=== PATIENT | female | born 1930 | race Caucasian/White ===

== ENCOUNTER 2017-10-02 08:49 | Inpatient (IN) | payer MEDICARE ==
[2017-10-02 09:42] LABS: ABS Basophils 0.1 10^3/ul (0-0.2); ABS Eosinophils 0.2 10^3/ul (0-0.6); ABS Lymphocytes 1.2 10^3/ul (1.0-4.8); ABS Monocytes 0.8 10^3/ul (0-0.8); ABS Neutrophils 10.4 10^3/ul (1.5-7.7); ABS Nucleated RBC 0 10^3/ul; Eosinophil % 1.3 % (0-6); Hematocrit 34 % (35-47); Hemoglobin 11.2 g/dl (12.0-16.0); Lymphocyte % 9.1 % (25-47); Mean Corpuscular HGB Conc 33 g/dl (31-36); Mean Corpuscular Hemoglobin 32 pg (27-31); Mean Corpuscular Volume 96 fL (80-97); Mean Platelet Volume 8.6 um3 (7.4-10.4); Nucleated Red Blood Cells % 0; Platelet Count 290 10^3/ul (150-450); Red Blood Count 3.51 10^6/ul (4.0-5.4); Red Cell Distribution Width 14 % (10.5-15); White Blood Count 12.6 10^3/ul (3.5-10.8)
[2017-10-02 09:56] LABS: INR 0.88 (0.77-1.02)
[2017-10-02 09:59] LABS: EGFR Non-African American 63.4 (>60)
--- NOTE | 2017-10-02 10:08 | RAD ---
HISTORY: Sepsis COMPARISONS: None VIEWS: 1: frontal portable view of the chest at 9:36 AM FINDINGS: LINES AND TUBES: None. CARDIOMEDIASTINAL SILHOUETTE: The cardiomediastinal silhouette is normal for portable technique. PLEURA: The costophrenic angles are sharp. No pleural abnormalities are noted. LUNG PARENCHYMA: There is hyperinflation. ABDOMEN: The upper abdomen is clear. There is no subphrenic gas. BONES AND SOFT TISSUES: There is a scoliotic curvature of the spine. Degenerative changes are noted. IMPRESSION: HYPERINFLATION. NO ACTIVE CARDIOPULMONARY DISEASE.
[2017-10-02 11:22] LABS: Urine Appearance Cloudy; Urine Blood 1+ (Negative); Urine Color Yellow; Urine Ketones Negative (Negative); Urine Protein Negative (Negative); Urine Urobilinogen Positive (Negative)
[2017-10-02] MEDS ORDERED: cefTRIAXone(*) 1 GM in NS 0.9% 50 ML* 50 ML IVPB ONE (11:42)
[2017-10-02] MEDS: NS 0.9% 1000 ML* 2,000 ML IV ONE ×2 (12:42→14:13)
[2017-10-02] MEDS ORDERED: hydrOXYzine HCL TAB* 10 MG PO PRN (13:01)
[2017-10-02] MEDS ORDERED: PROCHLORPERAZINE INJ 5 MG/ML 2 ML VIAL IV PRN (13:02)
[2017-10-02] MEDS ORDERED: Dextrose 50% Syringe 50 ML* 25 GM/50 ML SYRINGE IV PUSH PRN (13:14)
[2017-10-02] MEDS: Heparin VIAL(*) 5000 UNITS/ML VIAL (FIVE THOUSAND) SUBCUT SCH ×2 (15:43→21:23)
[2017-10-02] MEDS: Insulin LISPRO* 1 UNITS UNIT SUBCUT SCH ×2 (17:08→21:23)
--- NOTE | 2017-10-02 18:08 | RAD ---
INDICATION: Urinary tract infection COMPARISON: None TECHNIQUE: Real-time ultrasound examination of the bilateral kidneys and urinary bladder including grayscale and Doppler color flow analysis. FINDINGS: There is symmetrical bilateral cortical thinning. The kidneys are otherwise normal in size and echogenicity. There are no hypervascular renal masses. There are no renal calculi or hydronephrosis identified. IMPRESSION: Mild bilateral cortical thinning without signs of hydronephrosis or other acute renal abnormality.
[2017-10-02] MEDS: Metoprolol Tartrate TAB* 25 MG PO SCH (21:22)
[2017-10-02] MEDS: Gabapentin CAP(*) 100 MG PO SCH (21:22)
--- NOTE | 2017-10-02 21:47 | HP ---
CC: Dr. Eli Gregory, [facility] * HISTORY AND PHYSICAL: DATE OF ADMISSION: 10/02/17 TIME OF EVALUATION: 12:45 p.m. CHIEF COMPLAINT: "I am weak." HISTORY OF PRESENT ILLNESS: Ms. Ibarra is an 87-year-old lady with a past medical history of jaundice, constipation, hypothyroidism, type 2 diabetes, hypertension, osteoarthritis, mild dementia, who was sent from [place] to the emergency room due to weakness. The patient is a very poor historian and now she is in the hospital, but does not know exactly why. From her records from [place], I can glean that the patient was treated for pneumonia at [facility] and from there was discharged to [place] for rehab. The patient was diagnosed with E. coli UTI and received penicillin and developed a rash. She was then changed to Keflex, but her symptoms persisted. So, she was sent to the emergency room. At the time of my interview, the patient is able to tell me that she is very tired, but denies urinary complaints, abdominal pain. No nausea, no vomiting. She repeats she is very weak. PAST MEDICAL HISTORY: As per [facility] records, the patient has a history of : 1. Jaundice. 2. E. coli infection. 3. Constipation. 4. Hypothyroidism. 5. Type 2 diabetes. 6. Hypertension. 7. Osteoarthritis. 8. Osteoporosis. 9. Dementia. ALLERGIES: With PENICILLIN, the patient had a rash and LYRICA and NEURONTIN, she had unknown reactions. FAMILY HISTORY: I am unable to obtain from the patient at this time. SOCIAL HISTORY: I am unable to obtain from the patient. She is a resident of [facility]. Surrogate decision maker is her daughter, Vidhi Pak. Phone number is [phone]. PHYSICAL EXAMINATION GENERAL: The patient is a pleasantly confused elderly lady lying in the ED stretcher, in no acute distress. VITAL SIGNS: Temperature 98.8, heart rate is 74, respiratory rate is 15, oxygen saturation is 98% on room air, blood pressure is 131/47. HEENT: Pupils are equal. Moist mucous membranes. CVS: Normal S1, S2. Regular rate and rhythm. CHEST: Breath sounds bilaterally with no added sounds. ABDOMEN: Soft, nontender, nondistended. Bowel sounds are present. EXTREMITIES: No edema. NEUROLOGIC: She is alert and oriented to self and place. Able to move all 4 extremities. LABORATORY AND IMAGING DATA: The patient had a CBC that showed a WBC of 12.6, hemoglobin of 11.2, hematocrit of 34, platelets of 290 with 82% neutrophils. INR was 0.88. Chemistry showed a sodium of 136, potassium 3.6, chloride of 101 , bicarb of 27, BUN of 21, creatinine of 0.85, glucose of 148, lactic acid of 1.9, calcium 8.8. LFTs are normal. Troponin is 0.01. Urinalysis is abnormal with 1+ blood, nitrite positive, urobilinogen positive, 3 + LE, 3+ wbc's, 2+ rbc's and 1+ bacteria. Chest x-ray showed hyperinflation, but no active cardiopulmonary disease. EKG shows normal sinus rhythm at 70 beats per minute. There are no ST-T changes. No prior EKGs to compare. ASSESSMENT AND PLAN: Ms. Ibarra is an 87-year-old lady with a past medical history of jaundice, E. coli infection, constipation, hypothyroidism, type 2 diabetes, hypertension, who presented to the emergency room with weakness, found to have an urinary tract infection. 1. Urinary tract infection. The patient's urinalysis is abnormal and a prior urine culture grew pansensitive E. coli. The patient will be admitted to the medical floor and she will be treated with ceftriaxone. I am going to check a renal/bladder ultrasound to check a urinary tract if there are any other contributing factors to her infection. She does not have signs of sepsis at this time. The patient was apparently admitted to [facility] with pneumonia and after discharge came to [place] for rehab. I am going to obtain records from that admission. 2. Type 2 diabetes. The patient will be continued on Lantus. We are going to check a fingerstick a.c. and h.s. and cover with a lispro sliding scale. 3. Hypertension. We will continue metoprolol. 4. DVT prophylaxis. The patient has a score of 3 on the DVT Prophylaxis Risk Assessment Guide. She will be started on subcutaneous heparin. 5. Code status. Do not resuscitate and her MOLST form was updated. TIME SPENT: Approximately 45 minutes were spent with the patient interview, medical record review, physical examination to complete this admission, more than half of this time was spent [id number] with the patient in coordination of care. [id number]/[facility] #: [id number] HAIDER
[2017-10-03] MEDS: Levothyroxine TAB* 88 MCG TAB PO SCH (05:25)
[2017-10-03] MEDS: Heparin VIAL(*) 5000 UNITS/ML VIAL (FIVE THOUSAND) SUBCUT SCH ×3 (05:27→21:11)
[2017-10-03 05:54] LABS: ABS Basophils 0.1 10^3/ul (0-0.2); ABS Eosinophils 0.2 10^3/ul (0-0.6); ABS Lymphocytes 1.3 10^3/ul (1.0-4.8); ABS Monocytes 0.6 10^3/ul (0-0.8); ABS Nucleated RBC 0 10^3/ul; Hematocrit 34 % (35-47); Hemoglobin 11.6 g/dl (12.0-16.0); Lymphocyte % 13.8 % (25-47); Mean Corpuscular HGB Conc 34 g/dl (31-36); Mean Corpuscular Hemoglobin 33 pg (27-31); Mean Corpuscular Volume 95 fL (80-97); Mean Platelet Volume 8.2 um3 (7.4-10.4); Nucleated Red Blood Cells % 0; Platelet Count 266 10^3/ul (150-450); Red Blood Count 3.54 10^6/ul (4.0-5.4); Red Cell Distribution Width 14 % (10.5-15); White Blood Count 9.1 10^3/ul (3.5-10.8)
[2017-10-03 06:12] LABS: EGFR Non-African American 79.3 (>60)
[2017-10-03] MEDS: Insulin LISPRO* 1 UNITS UNIT SUBCUT SCH ×4 (08:03→21:16)
[2017-10-03] MEDS: Insulin GLARGINE(*) 1 UNITS UNIT SUBCUT SCH (08:52)
[2017-10-03] MEDS: Gabapentin CAP(*) 100 MG PO SCH ×2 (08:53→21:07)
[2017-10-03] MEDS: Metoprolol Tartrate TAB* 25 MG PO SCH ×2 (08:53→21:07)
[2017-10-03] MEDS: Cholecalciferol TAB* 1000 UNITS PO SCH (08:53)
[2017-10-03] MEDS: Famotidine TAB* 20 MG PO SCH (08:54)
--- NOTE | 2017-10-03 11:04 | ED ---
Kate Ballard Nilda, scribed for Babak Zamarripa MD on 10/02/17 at 1058 . Complex/Multi-Sys Presentation - HPI Summary HPI Summary: LVL 5 Caveat: Hx and PE are limited due to Hx mild dementia and forgetfulness. This patient is an 87 year old F BIBA from [facility] with a chief complaint of constant chills and weakness for the past few days. Pt was recently diagnosed with PNA two days ago and was administered Penicillin which resulted in allergic reaction (rash), per medical records. Record notes pts WBC is 14.5 and TSH 12.7. She was also positive for E. coli in urine on September 21, 2017 and was treated with Keflex with no results. The patient rates the pain 0/ 10 in severity. Symptoms aggravated and alleviated by nothing. Patient reports bilat feet pain secondary to neuropathy, chills, and sleep disturbance. She denies CP, SOB, heaviness on the chest, cough, and loss of appetite. Medications also include Lantus, Humalog, and Gabapentin. PMHx includes neuropathy and DM. - History Of Current Complaint Chief Complaint: EDGeneral Time Seen by Provider: 10/02/17 08:51 Hx Obtained From: Patient, Medical Records Hx From Patient Unobtainable Due To: Dementia Onset/Duration: Sudden Onset, Lasting Days, Still Present Timing: Constant Location: Pain At: - bilat feet Aggravating Factor(s): nothing Alleviating Factor(s): nothing Associated Signs And Symptoms: Positive: Other - rash (resolved), chills, weakness, bilat feet pain secondary to neuropathy, chills, and sleep disturbance. She denies CP, SOB, heaviness on the chest, cough, and loss of appetite. - Allergies/Home Medications Allergies/Adverse Reactions: Allergies Allergy/AdvReac Type Severity Reaction Status Date / Time Penicillins Allergy Rash Verified 10/02/17 09:10 Home Medications: Home Medications Acetaminophen TAB* [Tylenol TAB*] 325 mg PO BID PRN 10/02/17 [History Confirmed 10/02/17] Alendronate TAB (NF) [Fosamax TAB (NF)] 70 mg PO WEEKLY 10/02/17 [History Confirmed 10/02/17] Alpha Lipoic Acid [Lipoic Acid] 600 mg PO DAILY 10/02/17 [History Confirmed ] Cholecalciferol TAB* [Vitamin D TAB*] 1,000 unit PO DAILY 10/02/17 [History Confirmed 10/02/17] Famotidine TAB* [Pepcid 20 MG TAB*] 20 mg PO DAILY 10/02/17 [History Confirmed 10/02/17] Gabapentin CAP(*) [Neurontin 100 mg CAP(*)] 100 mg PO BID 10/02/17 [History Confirmed 10/02/17] Insulin GLARGINE(*) [Lantus(*)] 10 units SUBCUT QAM 10/02/17 [History Confirmed 10/02/17] Insulin LISPRO* [HumaLOG*] 0 - 10 units SUBCUT AC 10/02/17 [History Confirmed ] Levothyroxine TAB* [Synthroid TAB*] 88 mcg PO DAILY 10/02/17 [History Confirmed 10/02/17] Metoprolol Tartrate TAB* [Lopressor TAB*] 12.5 mg PO BID 10/02/17 [History Confirmed 10/02/17] hydrOXYzine HCL TAB* [Atarax 10 MG TAB*] 10 mg PO QID PRN 10/02/17 [History Confirmed 10/02/17] PMH/Surg Hx/FS Hx/Imm Hx Respiratory History: Reports: Hx Pneumonia History: Reports: Other Problems/Disorders - UTI Neurological History: Reports: Hx Dementia Infectious Disease History: No Infectious Disease History: Denies: Traveled Outside the [place] in Last 30 Days - Family History Known Family History: Positive: Unknown - LVL 5 Caveat: Hx and PE are limited due to Hx Dementia. - Social History Occupation: Retired [facility]: [facility] Review of Systems - ROS Summary Review of Systems Summary: LVL 5 Caveat: Hx and PE are limited due to Hx Dementia. Positive: Chills Negative: Chest Pain Negative: Shortness Of Breath, Cough Positive: Other - negative loss of appetite Neurological: Other - sleep disturbance, bilat feet pain secondary to neuropathy All Other Systems Reviewed And Are Negative: No Physical Exam - Summary Physical Exam Summary: Constitutional: Well-developed, Well-nourished, Alert. (-) Distressed Skin: Warm, Dry HENT: Normocephalic; Atraumatic, dry oral mucosa. Eyes: Conjunctiva normal Neck: Musculoskeletal ROM normal neck. (-) JVD, (-) Stridor, (-) Tracheal deviation Cardio: Rhythm regular, rate normal, Heart sounds normal; Intact distal pulses; The pedal pulses are 2+ and symmetric. Radial pulses are 2+ and symmetric. (-) Murmur Pulmonary/Chest wall: Effort normal. (-) Respiratory distress, (-) Wheezes, (-) Rales Abd: Soft, (-) Tenderness, (-) Distension, (-) Guarding, (-) Rebound Musculoskeletal: (-) Edema Lymph: (-) Cervical adenopathy Neuro: Alert, Oriented x3 Psych: Mood and affect Normal Triage Information Reviewed: Yes Vital Signs On Initial Exam: Initial Vitals Pulse Resp BP Pulse Ox 78 26 135/51 98 10/02/17 08:55 10/02/17 08:55 10/02/17 08:55 10/02/17 08:55 Vital Signs Reviewed: Yes Completion Of Physical Exam Limited Due To: Dementia Diagnostics - Vital Signs Vital Signs Temp Pulse Resp BP Pulse Ox 10/02/17 10:00 21 10/02/17 09:56 18 113/52 10/02/17 09:26 72 26 136/42 96 10/02/17 09:00 77 22 98 10/02/17 08:57 79 22 100 10/02/17 08:56 98.8 F 76 16 135/51 98 10/02/17 08:55 78 26 135/51 98 - Laboratory Lab Results: Lab Results 10/02/17 10/02/17 10/02/17 Range/Units 09:33 09:33 09:33 WBC 12.6 H (3.5-10.8) 10^3/ul RBC 3.51 L (4.0-5.4) 10^6/ul Hgb 11.2 L (12.0-16.0) g/dl Hct 34 L (35-47) % MCV 96 (80-97) fL MCH 32 H (27-31) pg MCHC 33 (31-36) g/dl RDW 14 (10.5-15) % Plt Count 290 (150-450) 10^3/ul MPV 8.6 (7.4-10.4) um3 Neut % (Auto) 82.2 (38-83) % Lymph % (Auto) 9.1 L (25-47) % Bath % (Auto) 6.5 (0-7) % Eos % (Auto) 1.3 (0-6) % Baso % (Auto) 0.9 (0-2) % Absolute Neuts (auto) 10.4 H (1.5-7.7) 10^3/ul Absolute Lymphs (auto) 1.2 (1.0-4.8) 10^3/ul Absolute Monos (auto) 0.8 (0-0.8) 10^3/ul Absolute Eos (auto) 0.2 (0-0.6) 10^3/ul Absolute Basos (auto) 0.1 (0-0.2) 10^3/ul Absolute Nucleated RBC 0 10^3/ul Nucleated RBC % 0 INR (Anticoag Therapy) 0.88 (0.77-1.02) APTT 22.2 L (26.0-36.3) seconds Sodium 136 L (139-145) mmol/L Potassium 3.6 (3.5-5.0) mmol/L Chloride 101 (101-111) mmol/L Carbon Dioxide 27 (22-32) mmol/L Anion Gap 8 (2-11) mmol/L BUN 21 (6-24) mg/dL Creatinine 0.85 (0.51-0.95) mg/dL Est GFR ( Amer) 81.6 (>60) Est GFR (Non-Af Amer) 63.4 (>60) BUN/Creatinine Ratio 24.7 H (8-20) Glucose 148 H (70-100) mg/dL Lactic Acid (0.5-2.0) mmol/L Calcium 8.8 (8.6-10.3) mg/dL Total Bilirubin 0.60 (0.2-1.0) mg/dL AST 20 (13-39) U/L ALT 26 (7-52) U/L Alkaline Phosphatase 86 (34-104) U/L Troponin I 0.01 (<0.04) ng/mL Total Protein 6.0 L (6.4-8.9) g/dL Albumin 2.7 L (3.2-5.2) g/dL Globulin 3.3 (2-4) g/dL Albumin/Globulin Ratio 0.8 L (1-3) 05/22/18 Range/Units 09:33 WBC (3.5-10.8) 10^3/ul RBC (4.0-5.4) 10^6/ul Hgb (12.0-16.0) g/dl Hct (35-47) % MCV (80-97) fL MCH (27-31) pg MCHC (31-36) g/dl RDW (10.5-15) % Plt Count (150-450) 10^3/ul MPV (7.4-10.4) um3 Neut % (Auto) (38-83) % Lymph % (Auto) (25-47) % Bath % (Auto) (0-7) % Eos % (Auto) (0-6) % Baso % (Auto) (0-2) % Absolute Neuts (auto) (1.5-7.7) 10^3/ul Absolute Lymphs (auto) (1.0-4.8) 10^3/ul Absolute Monos (auto) (0-0.8) 10^3/ul Absolute Eos (auto) (0-0.6) 10^3/ul Absolute Basos (auto) (0-0.2) 10^3/ul Absolute Nucleated RBC 10^3/ul Nucleated RBC % INR (Anticoag Therapy) (0.77-1.02) APTT (26.0-36.3) seconds Sodium (139-145) mmol/L Potassium (3.5-5.0) mmol/L Chloride (101-111) mmol/L Carbon Dioxide (22-32) mmol/L Anion Gap (2-11) mmol/L BUN (6-24) mg/dL Creatinine (0.51-0.95) mg/dL Est GFR ( Amer) (>60) Est GFR (Non-Af Amer) (>60) BUN/Creatinine Ratio (8-20) Glucose (70-100) mg/dL Lactic Acid 1.9 (0.5-2.0) mmol/L Calcium (8.6-10.3) mg/dL Total Bilirubin (0.2-1.0) mg/dL AST (13-39) U/L ALT (7-52) U/L Alkaline Phosphatase (34-104) U/L Troponin I (<0.04) ng/mL Total Protein (6.4-8.9) g/dL Albumin (3.2-5.2) g/dL Globulin (2-4) g/dL Albumin/Globulin Ratio (1-3) Result Diagrams: 10/02/17 09:33 10/02/17 09:33 Lab Statement: Any lab studies that have been ordered have been reviewed, and results considered in the medical decision making process. - Radiology CXR Radiology Interpretation Completed By: Radiologist - CXR reveals hyperinflation. No active cardiopulmonary disease. Dr. Zamarripa has reviewed this radiology report. - EKG 922 Cardiac Rate: NL - 70 bpm EKG Rhythm: Sinus Rhythm EKG Interpretation: no STEMI. Re-Evaluation - Re-Evaluation First Eval Re-Evaluation Time: 11:45 Comment: Updated pt on Tx plan. Complex Multi-Symp Course/Dx Course Of Treatment: LVL 5 Caveat: Hx and PE are limited due to Hx mild dementia and forgetfulness. Assessment/Plan: Failed treatment with Keflex for uti. Requires IV abx. Worsening delirium. Vitals are stable. - Diagnoses Provider Diagnoses: UTI (urinary tract infection) - Physician Notifications Discussed Care Of Patient With: Christina Ward - Hospitalist Time Discussed With Above Provider: 11:59 Instructed by Provider To: Admit As Inpatient Discharge - Sign-Out/Discharge Documenting (check all that apply): Discharge/Admit/Transfer - Discharge Plan Condition: Stable Disposition: ADMITTED TO [facility] The documentation as recorded by the Kate celis Nilda accurately reflects the service I personally performed and the decisions made by , Babak Zamarripa MD.
[2017-10-03] MEDS: cefTRIAXone(*) 1 GM in NS 0.9% 50 ML* 50 ML IVPB SCH (13:56)
--- NOTE | 2017-10-03 16:26 | PN ---
Subjective Date of Service: 10/03/17 Interval History: HOSPITALIST PROGRESS NOTE Patient seen and examined at bedside. Care reviewed and d/w Ry Dee RN. She c/o fatigue, but offers no other complaints. Family History: Unchanged from Admission Social History: Unchanged from Admission Past Medical History: Unchanged from Admission Objective Active Medications: Acetaminophen (Tylenol Tab*) 650 mg PO Q6H PRN PRN Reason: pain/fever Cholecalciferol (Vitamin D Tab*) 1,000 units PO DAILY [facility] Last Admin: 10/03/17 08:53 Dose: 1,000 units Dextrose (D50w Syringe 50 Ml*) 12.5 gm IV PUSH .FOR FS < 60 - SS PRN PRN Reason: FS < 60 Famotidine (Pepcid Tab*) 20 mg PO DAILY [facility] Last Admin: 10/03/17 08:54 Dose: 20 mg Gabapentin (Neurontin Cap(*)) 100 mg PO BID [facility] Last Admin: 10/03/17 08:53 Dose: 100 mg Heparin Sodium (Porcine) (Heparin Vial(*)) 5,000 units SUBCUT Q8HR [facility] Last Admin: 10/03/17 13:56 Dose: 5,000 units Hydroxyzine HCl (Atarax Tab*) 10 mg PO QID PRN PRN Reason: ANXIETY Ceftriaxone Sodium 1 gm/ (Sodium Chloride) 50 mls @ 200 mls/hr IVPB Q24H [facility] Last Admin: 10/03/17 13:56 Dose: 200 mls/hr Insulin Glargine (Lantus(*)) 10 units SUBCUT QAM [facility] Last Admin: 10/03/17 08:52 Dose: 10 units Insulin Human Lispro (Humalog*) 0 units SUBCUT ACHS [facility] PRN Reason: Protocol Last Admin: 10/03/17 11:48 Dose: Not Given Levothyroxine Sodium (Synthroid Tab*) 88 mcg PO DAILY@0600 [facility] Last Admin: 10/03/17 05:25 Dose: 88 mcg Metoprolol Tartrate (Lopressor Tab*) 12.5 mg PO BID [facility] Last Admin: 10/03/17 08:53 Dose: 12.5 mg Prochlorperazine Edisylate (Compazine Inj*) 5 mg IV Q6H PRN PRN Reason: NAUSEA/VOMITING Vital Signs - 8 hr 0510/03/17 10/03/17 08:53 11:48 15:19 Temperature 98.2 F Pulse Rate 78 Respiratory 16 16 18 Rate Blood Pressure 134/39 (mmHg) O2 Sat by Pulse 100 Oximetry Oxygen Devices in Use Now: None Appearance: Pleasant elderly lady sitting on a chair in NAD. Eyes: No Scleral Icterus Ears/Nose/Mouth/Throat: Mucous Membranes Moist Neck: Trachea Midline Respiratory: Symmetrical Chest Expansion and Respiratory Effort, Clear to Auscultation Cardiovascular: RRR - Normal S1 and S2 Abdominal: NL Sounds; No Tenderness; No Distention Neurological: - - AAOx2 (self and place), GABRIEL Result Diagrams: 10/03/17 05:47 10/03/17 05:47 Assess/Plan/Problems-Billing Assessment: Mrs. Ibarra is an 87yo F with PMH of type 2 DM, HTN, dementia, recent admission to [facility] for severe allergic reaction to penicillin, transferred from [place] to ED due to fever and weakness, found to have UTI. - Patient Problems (1) UTI (urinary tract infection) Comment: - Urine culture growing E. coli, sensitive pending. - Continue Ceftriaxone #2. (2) Type 2 diabetes mellitus Comment: - Continue Lantus and Lispro SS. (3) HTN (hypertension) Comment: - Controlled. - Continue Metoprolol. (4) DVT prophylaxis Comment: - SQ heparin. (5) DNR (do not resuscitate) Status and Disposition: Inpatient.
[2017-10-04] MEDS: Levothyroxine TAB* 88 MCG TAB PO SCH (05:20)
[2017-10-04] MEDS: Heparin VIAL(*) 5000 UNITS/ML VIAL (FIVE THOUSAND) SUBCUT SCH ×3 (05:20→22:02)
[2017-10-04] MEDS: Insulin LISPRO* 1 UNITS UNIT SUBCUT SCH ×4 (07:48→21:20)
[2017-10-04] MEDS: Acetaminophen TAB* 325 MG PO PRN (08:09)
[2017-10-04] MEDS: Famotidine TAB* 20 MG PO SCH (08:09)
[2017-10-04] MEDS: Cholecalciferol TAB* 1000 UNITS PO SCH (08:10)
[2017-10-04] MEDS: Gabapentin CAP(*) 100 MG PO SCH ×2 (08:10→22:02)
[2017-10-04] MEDS: Metoprolol Tartrate TAB* 25 MG PO SCH ×2 (08:10→22:02)
[2017-10-04] MEDS: Insulin GLARGINE(*) 1 UNITS UNIT SUBCUT SCH (08:11)
[2017-10-04] MEDS: cefTRIAXone(*) 1 GM in NS 0.9% 50 ML* 50 ML IVPB SCH (13:23)
--- NOTE | 2017-10-04 14:02 | PN ---
Subjective Date of Service: 10/04/17 Interval History: HOSPITALIST PROGRESS NOTE Patient seen and examined at bedside. Care reviewed and d/w Kristina Enrique RN. She's pleasantly confused, offers no complaints at this time. Family History: Unchanged from Admission Social History: Unchanged from Admission Past Medical History: Unchanged from Admission Objective Active Medications: Acetaminophen (Tylenol Tab*) 650 mg PO Q6H PRN PRN Reason: pain/fever Last Admin: 10/04/17 08:09 Dose: 650 mg Cholecalciferol (Vitamin D Tab*) 1,000 units PO DAILY [facility] Last Admin: 10/04/17 08:10 Dose: 1,000 units Dextrose (D50w Syringe 50 Ml*) 12.5 gm IV PUSH .FOR FS < 60 - SS PRN PRN Reason: FS < 60 Famotidine (Pepcid Tab*) 20 mg PO DAILY [facility] Last Admin: 10/04/17 08:09 Dose: 20 mg Gabapentin (Neurontin Cap(*)) 100 mg PO BID [facility] Last Admin: 10/04/17 08:10 Dose: 100 mg Heparin Sodium (Porcine) (Heparin Vial(*)) 5,000 units SUBCUT Q8HR [facility] Last Admin: 10/04/17 13:24 Dose: 5,000 units Hydroxyzine HCl (Atarax Tab*) 10 mg PO QID PRN PRN Reason: ANXIETY Ceftriaxone Sodium 1 gm/ (Sodium Chloride) 50 mls @ 200 mls/hr IVPB Q24H [facility] Last Admin: 10/04/17 13:23 Dose: 200 mls/hr Insulin Glargine (Lantus(*)) 10 units SUBCUT QAM [facility] Last Admin: 10/04/17 08:11 Dose: 10 units Insulin Human Lispro (Humalog*) 0 units SUBCUT ACHS [facility] PRN Reason: Protocol Last Admin: 10/04/17 12:06 Dose: Not Given Levothyroxine Sodium (Synthroid Tab*) 88 mcg PO DAILY@0600 [facility] Last Admin: 10/04/17 05:20 Dose: 88 mcg Metoprolol Tartrate (Lopressor Tab*) 12.5 mg PO BID [facility] Last Admin: 10/04/17 08:10 Dose: 12.5 mg Prochlorperazine Edisylate (Compazine Inj*) 5 mg IV Q6H PRN PRN Reason: NAUSEA/VOMITING Vital Signs - 8 hr 10/04/17 10/04/17 10/04/17 07:33 08:00 08:10 Temperature 98.2 F Pulse Rate 71 Respiratory 24 24 24 Rate Blood Pressure 130/45 (mmHg) O2 Sat by Pulse 98 98 Oximetry Oxygen Devices in Use Now: None Appearance: Plesant elderly lady sitting up in a chair in NAD. Eyes: No Scleral Icterus Ears/Nose/Mouth/Throat: Mucous Membranes Moist Neck: Trachea Midline Respiratory: Symmetrical Chest Expansion and Respiratory Effort, Clear to Auscultation Cardiovascular: RRR - Normal S1 and S2 Neurological: - - AAox2 (self and place), GABRIEL Result Diagrams: 10/03/17 05:47 10/03/17 05:47 Assess/Plan/Problems-Billing Assessment: Mrs. Ibarra is an 87yo F with PMH of type 2 DM, HTN, dementia, recent admission to [facility] for severe allergic reaction to penicillin, transferred from [place] to ED due to fever and weakness, found to have UTI. - Patient Problems (1) UTI (urinary tract infection) Comment: - Urine culture growing E. coli, sensitive to Ceftriaxone. - Continue Ceftriaxone #3. (2) Type 2 diabetes mellitus Comment: - Continue Lantus and Lispro SS. (3) HTN (hypertension) Comment: - Controlled. - Continue Metoprolol. (4) DVT prophylaxis Comment: - SQ heparin. (5) DNR (do not resuscitate) Status and Disposition: Inpatient.
[2017-10-05] MEDS: Acetaminophen TAB* 325 MG PO PRN ×3 (02:06→16:12)
[2017-10-05] MEDS: Heparin VIAL(*) 5000 UNITS/ML VIAL (FIVE THOUSAND) SUBCUT SCH ×2 (06:14→14:39)
[2017-10-05] MEDS: Levothyroxine TAB* 88 MCG TAB PO SCH (06:15)
[2017-10-05] MEDS: Insulin LISPRO* 1 UNITS UNIT SUBCUT SCH ×2 (08:28→12:16)
[2017-10-05] MEDS: Gabapentin CAP(*) 100 MG PO SCH (08:28)
[2017-10-05] MEDS: Metoprolol Tartrate TAB* 25 MG PO SCH (08:29)
[2017-10-05] MEDS: Famotidine TAB* 20 MG PO SCH (08:29)
[2017-10-05] MEDS: Cholecalciferol TAB* 1000 UNITS PO SCH (08:29)
[2017-10-05] MEDS ORDERED: Insulin GLARGINE(*) 1 UNITS UNIT SUBCUT SCH (09:00)
[2017-10-05] MEDS ORDERED: Docusate CAP* 100 MG PO SCH (11:00)
--- NOTE | 2017-10-05 13:00 | DS ---
CC: Dr. Vidhi Malin in [place], ; Dr. Eli Gregory, [facility]; [facility] DATE OF ADMISSION: 10/02/2017. DATE OF DISCHARGE: 10/05/2017. DISCHARGE DIAGNOSES: 1. E. coli urinary tract infection, present on admission, not Wood catheter related. 2. Mild leukocytosis. 3. Mild hyponatremia. SECONDARY DIAGNOSES: 1. Type 2 diabetes. 2. Osteoporosis. 3. Hypertension. 4. Hypothyroidism. 5. Nontoxic multinodular goiter. 6. Nonrheumatic aortic valve stenosis. 7. Aortic insufficiency. 8. Probable dementia. MEDICATIONS: 1. Acetaminophen 325 mg p.o. b.i.d. as needed for pain or fever. 2. Metoprolol Tartrate 12.5 mg p.o. b.i.d. 3. Alpha Lipoic Acid 600 mg p.o. daily. 4. Levothyroxine 88 mcg p.o. daily. 5. Hydroxyzine 10 mg p.o. q.i.d. prn itching. 6. Lantus 10 units subcutaneously q.a.m. 7. Gabapentin 100 mg p.o. b.i.d. 8. Famotidine 20 mg p.o. daily. 9. Cholecalciferol 1,000 units p.o. daily. 10. Alendronate 70 mg p.o. weekly. 11. Lispro sliding scale as follows: 201 to 250 two units, 251 to 300 four units, 301 to 350 six uni ts, 351 to 400 ten units, greater than 400 call MD. HOSPITAL COURSE: Ms. Ibarra is an 87-year-old lady with a past medical history as stated above who pre sented to the emergency room on October 02 from [facility] with complaints of weakness. As per [facility] records, the patient also had a fever of 101. Her history goes back to the end of August when the patient was diagnosed with bronchitis by her prima care provider on August 27. She was prescribed penicillin and she developed a rash that started on her abdomen. This rash progressed and as per description became quite severe associated with faci al edema. She was admitted to [facility] and found to have a type 1 hypersensitive reaction to penic illin. She was treated with steroids, H1 and H2 blockers with improvement of her symptoms, but she w as found to be debilitated and required assistance with all her ADL's. She was discharged to [facility] on September 12 to pursue rehab. As per her daughter, Vidhi Pak, while at [facility] the patient was diagnosed with a urinary tract infection and treated with Cephalexin, but she did not have improvement of her symptoms. The irene segura also mentioned that the patient had developed jaundice, but this has not been an issue during this admission. Despite Cephalexin, the patient continued to complain of fatigue, weakness, malaise, and she had a fe greer of 101, the reason why she was sent to the emergency room for further evaluation. Her work-up in the emergency room included a chest x-ray that showed hyperinflation, but no active ca rdiopulmonary issues. Her CBC showed a mild leukocytosis of 12.6. Her chemistry showed a normal jose angel al function and normal LFT's. The patient was admitted to the medical floor and her urinalysis was found to be abnormal with positi ve nitrates, positive urobilinogen, 3+ LE, 3+ WBC, and 2+ RBC. Urine culture grew E. coli greater laura n 100,000 colonies, pansensitive. The patient was started on Ceftriaxone and she tolerated her medic ation well. She did not have any urinary symptoms and she remained afebrile while in the hospital wi th stable vital signs. As per the daughter, the patient has had progressive decline of her cognitive status over the past ni ne to ten months. She sometimes does not recognize her daughters and prior to this admission, she di d not recognize her . She has not formerly been diagnosed with dementia, but that is her clin ical picture. While in the hospital, she was pleasantly confused, but she did have some periods of a gitation at night. Due to her persistent urinary tract infection, the patient had an abdomen and bladder ultrasound that showed mild bilateral cortical thinning without signs of hydronephrosis or other acute renal abnorma lities. The patient is medically stable to be discharged. The family elected to send her to [facility] at [facility] s time and the patient will continue physical and occupational therapy. The plan is for her to complete a week of treatment with Cefpodoxime at this point, but if she has re currence of her urinary tract infection, she may need further urological work-up. PHYSICAL EXAMINATION: General: The patient is a pleasant, elderly lady, sitting up in bed in no acu te distress. Vital Signs: Temperature 98.0, heart rate 73, respiratory rate 16, oxygen saturation 9 7 percent on room air, blood pressure 109/59. CVS: Normal S1, S2. Regular rate and rhythm. Chest: Breath sounds present bilaterally with no added sounds. Abdomen: Soft, bowel sounds are present. Extremities: There is trace edema bilaterally. Neuro: She is alert, awake, and oriented times two of self and place. She is able to move all four extremities. DIET: Consistent carb diet. ACTIVITIES: As tolerated. DISPOSITION: To [facility]. STATUS WHILE IN THE HOSPITAL: Inpatient. Please keep in mind that this is a summarized version of this patient's hospital stay. If you need m ore information, please feel free to call me at or please obtain the full medical recor ds. Approximately 45 minutes were spent to complete this discharge. [id number]/[facility] #: [id number]
[2017-10-05] MEDS: cefTRIAXone(*) 1 GM in NS 0.9% 50 ML* 50 ML IVPB SCH (13:32)
[2017-10-05 15:43] VITALS: BP 126/45
== END 2017-10-05 16:21 | DRG 690 ==
LOC: ED 08:49 → MED 12:46
PROVIDERS: ADMIT Internal Medicine; ATTEND Internal Medicine
DX: N39.0 Urinary tract infection, site not specified (principal); E87.1 Hypo-osmolality and hyponatremia; B96.20 Unspecified Escherichia coli [E. coli] as the cause of diseases classified elsewhere; M81.0 Age-related osteoporosis without current pathological fracture; E03.9 Hypothyroidism, unspecified; I10 Essential (primary) hypertension; E04.2 Nontoxic multinodular goiter; Z66 Do not resuscitate; E11.40 Type 2 diabetes mellitus with diabetic neuropathy, unspecified; I35.2 Nonrheumatic aortic (valve) stenosis with insufficiency; F03.90 Unspecified dementia, unspecified severity, without behavioral disturbance, psychotic disturbance, mood disturbance, and anxiety; Z79.4 Long term (current) use of insulin; Z88.0 Allergy status to penicillin; Z87.440 Personal history of urinary (tract) infections; Z87.01 Personal history of pneumonia (recurrent)
CPT/HCPCS: 36415; 71045; 76770; 80048; 80053; 81003; 81015; 83605; 84484; 85025; 85610; 85730; 87040; 87077; 87086; 87186; 87641; 93005; 99284; A9270-GY; G8978-GP-CK; G8979-GP-CI; G8987-GO-CK; G8988-GO-CI; G8989-GO-CI; J0696; J1644

== ENCOUNTER 2018-06-30 09:27 | Emergency (ER) | payer MEDICARE ==
[2018-06-30 10:35] LABS: Influenza A Molecular NEGATIVE (Negative); Influenza B Molecular NEGATIVE (Negative)
--- NOTE | 2018-06-30 10:39 | ED ---
HPI Febrile Illness - HPI Summary HPI Summary: This patient is a 87 year old female brought in by EMS from [place] to [facility] with a CC of a fever. Staff told EMS the patient was only minorly responsive to Tylenol and they want to r/o flu. She is c/o diarrhea. She is denying CP, SOB, ABD pain, HAMMONDS, and vomiting. She is unaware of past medical history. Pt dos have the beginning stages of dementia. EMS reports the patient had a fever of 100.4 and was given tylenol, the staff waited 20 minutes before calling EMS and the fever only dropped to 100.2. Pt is afebrile on arrival. - History of Current Complaint Chief Complaint: EDFluSymptoms Time Seen by Provider: 06/30/18 09:39 Hx Obtained From: Patient, EMS Onset/Duration: Still Present Timing: Constant Temperature: 38.0 C Initial Severity: Mild Current Severity: Mild Pain Intensity: 0 Pain Scale Used: 0-10 Numeric Alleviating Factors: OTC Medicine Associated Signs and Symptoms: Diarrhea - Additional Pertinent History Primary Care Physician: CODY - Allergy/Home Medications Allergies/Adverse Reactions: Allergies Allergy/AdvReac Type Severity Reaction Status Date / Time Penicillins Allergy Rash Verified 06/30/18 14:04 Sulfa (Sulfonamide Allergy Swelling Verified 06/30/18 14:05 Antibiotics) Of Face,Lips,& Throat PMH/Surg Hx/FS Hx/Imm Hx Endocrine/Hematology History: Reports: Hx Diabetes Cardiovascular History: Reports: Hx Hypertension Respiratory History: Reports: Hx Pneumonia History: Reports: Other Problems/Disorders - UTI Sensory History: Reports: Hx Contacts or Glasses Denies: Hx Hearing Aid Opthamlomology History: Reports: Hx Contacts or Glasses Neurological History: Reports: Hx Dementia, Other Neuro Impairments/Disorders - Neuropathy of bilateral feet - Surgical History Surgery Procedure, Year, and Place: Hysterectomy Infectious Disease History: No Infectious Disease History: Denies: Traveled Outside the [place] in Last 30 Days - Family History Known Family History: Negative: Hypertension - Social History Alcohol Use: None Substance Use Type: Reports: None Smoking Status (MU): Never Smoked Tobacco Review of Systems Positive: Fever Negative: Chest Pain Negative: Shortness Of Breath Positive: Diarrhea. Negative: Abdominal Pain, Vomiting Negative: Headache All Other Systems Reviewed And Are Negative: Yes Physical Exam - Summary Physical Exam Summary: GENERAL: Patient is a well-developed and nourished F who is lying comfortable in the stretcher. Patient is not in any acute respiratory distress. HEAD AND FACE: Normocephalic EYES: PERRLA, EOMI x 2. EARS: Hearing grossly intact. MOUTH: Oropharynx within normal limits. NECK: Supple, trachea is midline, no adenopathy, no JVD, no carotid bruit. CHEST: Symmetric, no tenderness at palpation LUNGS: Clear to auscultation bilaterally. No wheezing or crackles. CVS: Regular rate and rhythm, S1 and S2 present, no murmurs or gallops appreciated. ABDOMEN: Soft, non-tender. Bowel sounds are normal. No abdominal abnormal pulsations. EXTREMITIES: Full ROM in all major joints, no edema, no cyanosis or clubbing. NEURO: Alert and oriented x 3. No acute neurological deficits. Speech is normal and follows commands. SKIN: Dry and warm Triage Information Reviewed: Yes Vital Signs On Initial Exam: Initial Vitals Pulse Pulse Ox 66 96 06/30/18 09:32 06/30/18 09:32 Vital Signs Reviewed: Yes Diagnostics - Vital Signs Vital Signs Temp Pulse Resp BP Pulse Ox 06/30/18 10:04 67 122/52 94 06/30/18 09:33 98.5 F 69 16 98/50 94 06/30/18 09:32 66 96 - Laboratory Result Diagrams: 06/30/18 11:02 06/30/18 11:02 Lab Statement: Any lab studies that have been ordered have been reviewed, and results considered in the medical decision making process. - Radiology CXR Radiology Interpretation Completed By: Radiologist Summary of Radiographic Findings: HYPERINFLATION, CONSISTENT WITH COPD. NO ACTIVE CARDIOPULMONARY DISEASE. ED physician has reviewed this report. Re-Evaluation - Re-Evaluation First Eval Re-Evaluation Time: 14:09 Comment: Upon discharge the nurse was reviewing the patients charts and noticed there was a sulfa allergy that was note in her chart. The patient cannot be given Bactrim due to this. The nurse is going to call and cancel this rx. Course/Dx - Course Assessment/Plan: This patient is a 87 year old female brought in by EMS from [place] to [facility] with a CC of a fever. CXR reveals, HYPERINFLATION, CONSISTENT WITH COPD. NO ACTIVE CARDIOPULMONARY DISEASE Her bp was 97/34 in the ED, we called [facility] and they state she usually has a systolic in the 90 s. UA was positive for UTI. I have looked up previous sensitivities of her UTI s in the past and from these results I have determined to give the patient Bactrim. She was given a dose in the ED and she was also given a script for bactrim. Upon discharge the nurse was reviewing the patients charts and noticed there was a sulfa allergy that was note in her chart. The patient cannot be given Bactrim due to this. After looking at prior sensitivities I have decided to give an rx for doxy instead. - Diagnoses Provider Diagnoses: UTI (urinary tract infection) Discharge - Sign-Out/Discharge Documenting (check all that apply): Patient Departure - d/c Patient Received Moderate/Deep Sedation with Procedure: No - Discharge Plan Condition: Stable Disposition: HOME Prescriptions: DOXYcycline CAP(*) [DOXYcycline 100MG CAP(*)] 100 mg PO BID #14 cap Sulfamethox/Trimethoprim DS* [Bactrim DS 800/160 TAB*] 1 tab PO BID #14 tab Patient Education Materials: Urinary Tract Infection in Women (DC), Urinary Tract Infection in Older Adults (ED) Referrals: Madyson Ball MD [Primary Care Provider] - Additional Instructions: Follow up with your primary care physician in 1-3 days. RETURN TO THE EMERGENCY DEPARTMENT FOR CHANGING OR WORSENING SYMPTOMS. - Billing Disposition and Condition Condition: STABLE Disposition: Home - Attestation Statements Document Initiated by Joe: Yes Documenting Scribe: Adin Byers Provider For Whom Joe is Documenting (Include Credential): Alexis Monroe MD Scribe Attestation: Adin Ballard , scribed for Alexis Monroe MD on 07/01/18 at 1725. Scribe Documentation Reviewed: Yes Provider Attestation: The documentation as recorded by the Adin celis accurately reflects the service I personally performed and the decisions made by me, Alexis Monroe MD Status of Scribe Document: Viewed
[2018-06-30 11:16] LABS: ABS Basophils 0 10^3/ul (0-0.2); ABS Eosinophils 0 10^3/ul (0-0.6); ABS Monocytes 0.9 10^3/ul (0-0.8); ABS Neutrophils 4.8 10^3/ul (1.5-7.7); ABS Nucleated RBC 0 10^3/ul; Eosinophil % 0.2 %; Hematocrit 36 % (35-47); Hemoglobin 11.6 g/dl (12.0-16.0); Lymphocyte % 14.8 %; Mean Corpuscular HGB Conc 32 g/dl (31-36); Mean Corpuscular Hemoglobin 32 pg (27-31); Mean Corpuscular Volume 100 fL (80-97); Mean Platelet Volume 8.9 fL (7.4-10.4); Nucleated Red Blood Cells % 0; Platelet Count 143 10^3/ul (150-450); Red Blood Count 3.59 10^6/ul (4.00-5.40); Red Cell Distribution Width 13 % (10.5-15); White Blood Count 6.7 10^3/ul (3.5-10.8)
[2018-06-30 11:24] LABS: Activated Partial Thrombo Time 25.9 seconds (26.0-36.3); INR 0.86 (0.77-1.02)
[2018-06-30 11:38] LABS: Albumin 3.5 g/dL (3.2-5.2); Albumin/Globulin Ratio 1.2 (1-3); Calcium 9.1 mg/dL (8.6-10.3); EGFR African American 77.8 (>60); EGFR Non-African American 64.3 (>60); Globulin 2.9 g/dL (2-4); Potassium 3.6 mmol/L (3.5-5.0); Total Bilirubin 0.3 mg/dL (0.2-1.0); Total Protein 6.4 g/dL (6.4-8.9)
[2018-06-30] MEDS ORDERED: NS 0.9% 1000 ML** 1,000 ML IV ONE (12:37)
[2018-06-30 13:02] LABS: Urine Appearance Cloudy; Urine Bacteria 1+ (Absent); Urine Bilirubin Negative (Negative); Urine Blood Negative (Negative); Urine Color Yellow; Urine Glucose Negative (Negative); Urine Ketones Negative (Negative); Urine Nitrite Positive (Negative); Urine Protein Negative (Negative); Urine Red Blood Cell Trace(0-2/hpf) (Absent); Urine Urobilinogen Negative (Negative); Urine White Blood Cell 3+(>20/hpf) (Absent)
[2018-06-30] MEDS ORDERED: Sulfamethox/Trimethoprim DS 800/160* TAB PO ONE (13:53)
[2018-06-30] MEDS ORDERED: DOXYcycline CAP(*) 100 MG PO ONE (14:19)
[2018-06-30 14:41] VITALS: BP 124/55
--- NOTE | 2018-07-02 07:29 | PN ---
Progress Note - Progress Note Date of Service: 06/30/18 Note: Urine culture preliminary grew Klebsiella 100,000 Patient was placed on doxycycline based on previous sensitivities We'll await final culture and sensitivities
== END 2018-06-30 15:11 | disposition home or self-care (01) ==
LOC: ED 09:27
DX: N39.0 Urinary tract infection, site not specified (principal); B96.1 Klebsiella pneumoniae [K. pneumoniae] as the cause of diseases classified elsewhere; Z88.0 Allergy status to penicillin; Z88.2 Allergy status to sulfonamides; E11.9 Type 2 diabetes mellitus without complications; I10 Essential (primary) hypertension
CPT/HCPCS: 36415; 71046; 80053; 81003; 81015; 83605; 84484; 85025; 85610; 85730; 87040; 87077; 87086; 87186; 99283; A9270-GY

== ENCOUNTER 2018-11-08 18:46 | Inpatient (IN) | payer MEDICARE ==
[2018-11-08] MEDS ORDERED: NS 0.9% 1000 ML** 1,000 ML IV.FLUID IV ONE (19:24)
[2018-11-08] MEDS ORDERED: Levofloxacin 750 MG IVPREMIX(* 750 MG/150 ML BAG IVPB ONE (19:25)
[2018-11-08] MEDS ORDERED: Acetaminophen TAB* 325 MG PO ONE (19:26)
--- NOTE | 2018-11-08 19:29 | ED ---
Altered Mental Status - HPI Summary HPI Summary: This pt is an 88 y/o female presenting to [facility] via EMS from [place] for altered mental status. EMS reports pt has had decreased in alertness and activity for the past 24 hours. Per EMS, at baseline pt is independent. EMS notes pt had a fever of 101.3F while in [place] prior to their arrival. Pt currently reports her feet are painful. Denies SOB or abd pain. Pt does not know her location and seems confused. HPI is limited due to pt's confusion. - History Of Current Complaint Chief Complaint: EDAltMentalStatus Stated Complaint: AMS PER EMS Time Seen by Provider: 11/08/18 19:20 Hx Obtained From: Patient, EMS Timing: Lasting Hours Severity Currently: Moderate Character: Confusion Aggravating Factor(s): Unknown Alleviating Factor(s): Unknown Associated Signs And Symptoms: Positive: Fever - Allergies/Home Medications Allergies/Adverse Reactions: Allergies Allergy/AdvReac Type Severity Reaction Status Date / Time Penicillins Allergy Rash Verified 11/08/18 19:15 Sulfa (Sulfonamide Allergy Swelling Verified 11/08/18 19:15 Antibiotics) Of Face,Lips,& Throat Home Medications: Home Medications Cholecalciferol (Vitamin D3) [Vitamin D3] 1,000 unit PO QPM 11/08/18 [History Confirmed 11/08/18] PMH/Surg Hx/FS Hx/Imm Hx Endocrine/Hematology History: Reports: Hx Diabetes Cardiovascular History: Reports: Hx Hypertension Respiratory History: Reports: Hx Pneumonia History: Reports: Other Problems/Disorders - UTI Sensory History: Reports: Hx Contacts or Glasses Denies: Hx Hearing Aid Opthamlomology History: Reports: Hx Contacts or Glasses Neurological History: Reports: Hx Dementia, Other Neuro Impairments/Disorders - Neuropathy of bilateral feet - Surgical History Surgery Procedure, Year, and Place: Hysterectomy Infectious Disease History: No Infectious Disease History: Denies: Traveled Outside the [place] in Last 30 Days - Family History Known Family History: Negative: Hypertension - Social History Alcohol Use: None Substance Use Type: Reports: None Smoking Status (MU): Never Smoked Tobacco Review of Systems Positive: Fever Negative: Shortness Of Breath Negative: Abdominal Pain Musculoskeletal: Other - POSITIVE: pain in legs Neurological: Other - POSITIVE: confusion All Other Systems Reviewed And Are Negative: No Physical Exam - Summary Physical Exam Summary: VITAL SIGNS: Reviewed. GENERAL: Patient is a well-developed and nourished female who is lying comfortable in the stretcher. Patient is not in any acute respiratory distress. HEAD AND FACE: No signs of trauma. No ecchymosis, hematomas or skull depressions. No sinus tenderness. EYES: PERRLA, EOMI x 2, No injected conjunctiva, no nystagmus. EARS: Hearing grossly intact. Ear canals and tympanic membranes are within normal limits. MOUTH: Oropharynx within normal limits. NECK: Supple, trachea is midline, no adenopathy, no JVD, no carotid bruit, no c- spine tenderness, neck with full ROM. CHEST: Symmetric, no tenderness at palpation LUNGS: Clear to auscultation bilaterally. No wheezing or crackles. CVS: Regular rate and rhythm, S1 and S2 present, no murmurs or gallops appreciated. ABDOMEN: Soft, non-tender. No signs of distention. No rebound no guarding, and no masses palpated. Bowel sounds are normal. EXTREMITIES: FROM in all major joints, no edema, no cyanosis or clubbing. NEURO: Alert and oriented x 1. No acute neurological deficits. Speech is normal and follows commands. SKIN: Dry and warm Triage Information Reviewed: Yes Vital Signs On Initial Exam: Initial Vitals Pulse BP Pulse Ox 91 155/55 96 11/08/18 18:56 11/08/18 18:56 11/08/18 18:56 Vital Signs Reviewed: Yes Diagnostics - Vital Signs Vital Signs Temp Pulse Resp BP Pulse Ox 11/08/18 19:00 88 19 94 11/08/18 18:59 102.9 F 87 20 155/55 94 11/08/18 18:58 89 14 95 11/08/18 18:56 91 155/55 96 - Laboratory Result Diagrams: 11/08/18 19:41 11/08/18 19:41 Lab Statement: Any lab studies that have been ordered have been reviewed, and results considered in the medical decision making process. - Radiology Chest XR Radiology Interpretation Completed By: ED Physician Summary of Radiographic Findings: No acute process. Pending official radiology report. - EKG 19:31 Cardiac Rate: NL - at 86 bpm EKG Rhythm: Sinus Rhythm Summary of EKG Findings: EKG at 19:31 shows normal sinus rhythm at 86 bpm. Altered Mental Statu Course/Dx - Course Assessment/Plan: Pt is an 88 y/o female presenting to [facility] via EMS from [place] for altered mental status. EMS reports pt has had decreased in alertness and activity for the past 24 hours. Per EMS, at baseline pt is independent. EMS notes pt had a fever of 101.3F while in [place] prior to their arrival. Pt currently reports her feet are painful. Denies SOB or abd pain. Pt does not know her location and seems confused. Lab results remarkable for glucose of 177, CRP of 71.77, urinalysis is consistent with a UTI. Chest XR is negative for an acute process. In the ED course the pt was given IV fluids, Tylenol, Levaquin. Discussed the case with Dr. Mc, hospitalist, who accepted the pt for admission. - Diagnoses Provider Diagnoses: Sepsis secondary to UTI - Provider Notifications Discussed Care Of Patient With: Mary Lou cM - hospitalist Time Discussed With Above Provider: 20:30 Instructed by Provider To: Admit As Inpatient Discharge - Sign-Out/Discharge Documenting (check all that apply): Patient Departure - Admit to [facility] Patient Received Moderate/Deep Sedation with Procedure: No - Discharge Plan Condition: Stable Disposition: ADMITTED TO [facility] Referrals: Madyson Ball MD [Primary Care Provider] - - Attestation Statements Document Initiated by Scribe: Yes Documenting Scribe: Harleen Dolan Provider For Whom Scribe is Documenting (Include Credential): Kamla Romero MD Scribe Attestation: Harleen Ballard, scribed for Kamla Romero MD on 11/08/18 at 2114. Status of Scribe Document: Ready
[2018-11-08 20:06] LABS: ABS Eosinophils 0.1 10^3/ul (0-0.6); ABS Lymphocytes 0.8 10^3/ul (1.0-4.8); ABS Monocytes 1.2 10^3/ul (0-0.8); Eosinophil % 1.2 %; Hematocrit 37 % (35-47); Hemoglobin 12.4 g/dL (12.0-16.0); Lymphocyte % 8.3 %; Mean Corpuscular HGB Conc 33 g/dL (31-36); Mean Corpuscular Hemoglobin 33 pg (27-31); Mean Corpuscular Volume 99 fL (80-97); Mean Platelet Volume 9.3 fL (7.4-10.4); Platelet Count 159 10^3/uL (150-450); Red Blood Count 3.75 10^6 /uL (3.70-4.87); Red Cell Distribution Width 13 % (10-15); White Blood Count 9.1 10^3/uL (3.5-10.8)
[2018-11-08 20:14] LABS: Activated Partial Thrombo Time 22.5 seconds (26.0-38.0); INR 0.91 (0.82-1.09)
[2018-11-08 20:21] LABS: Albumin/Globulin Ratio 1.1 (1-3); BUN/Creatinine Ratio 28.2 (8-20); C Reactive Protein 71.77 mg/L (<8.01); Calcium 9.9 mg/dL (8.6-10.3); EGFR African American 76.6 (>60); EGFR Non-African American 63.3 (>60); Globulin 3.5 g/dL (2-4); Potassium 4.4 mmol/L (3.5-5.0); Total Bilirubin 0.5 mg/dL (0.2-1.0); Total Protein 7.5 g/dL (6.4-8.9); Troponin I 0.01 ng/mL (<0.04)
[2018-11-08 20:22] LABS: Urine Appearance Cloudy; Urine Bacteria 1+ (Absent); Urine Bilirubin Negative (Negative); Urine Blood Negative (Negative); Urine Color Yellow; Urine Glucose Negative (Negative); Urine Ketones Negative (Negative); Urine Nitrite Positive (Negative); Urine Protein 1+(30 mg/dL) (Negative); Urine Red Blood Cell Absent (Absent); Urine Specific Gravity 1.014 (1.010-1.030); Urine Urobilinogen Negative (Negative); Urine White Blood Cell 3+(>20/hpf) (Absent)
[2018-11-08] MEDS ORDERED: Al Hydrox/Mg Hydrox/Simet LIQ* 30 ML UDC PO PRN (21:01)
--- NOTE | 2018-11-08 22:12 | HP ---
HISTORY AND PHYSICAL: ADDENDUM: I heard back from Valentine's nurse at [place], Monet. She explains that Valentine's baseline mental status is that she is oriented to self and recognized people, but not to place and she normally can make her needs known. Regarding the presentation, Monet recalls that at lunch time, Valentine was able to stand and pivot to leave the dining room; however, she normally walks by herself with a walker, so this was unusual for her. She was also less talkative throughout the day. Then at dinner, she noted Valentine to be unable to verbalize when she was attempting to, she could not lift her head forward and could not focus on her. She says her "eye were going in different directions" and she was reaching for things that were not there. Based on this history, my differential is broadened to include seizure or TIA or stroke. Certainly these symptoms are resolved at this time and a postictal state was not described, but I would like to get a CT head now to further evaluate this presentation. [id number]/[facility] #: [id number] HAIDER
[2018-11-08] MEDS: Enoxaparin(*) 40 MG/0.4 ML SYR SUBCUT SCH (23:44)
[2018-11-08] MEDS: Meropenem 1 GM PREMIX(*) 1 GM/50 ML BAG IV SCH (23:45)
--- NOTE | 2018-11-09 00:08 | HP ---
ADDENDUM NOW INCLUDED ON THIS REPORT CC: Dr. Ball * HISTORY AND PHYSICAL: DATE OF ADMISSION: 11/08/18 TIME OF ADMISSION: 9 p.m. CHIEF COMPLAINT: "They thought it was a UTI." HISTORY OF PRESENT ILLNESS: This is an 88-year-old female with history of diabetes and some degree of dementia, who presents to the emergency department after she was noted to be delirious and had a fever at [facility]. She is able to give some history and is able to tell me that it does burn to urinate and she has some pelvic discomfort; however, she also perseverates on needing to get home to take care of her family and believes that she has been in the current ED room for a month and a half. She is able to participate in a review of systems and denies shortness of breath, chest pain , headache, nausea, vomiting, cough. She does admit to some diarrhea, but is unable to quantify it and she does admit also to some pain in her bottom. I reviewed the records from [place] and see that Dr. Ball sent her to the emergency department for fever and declining mental status and "loss of mobility." I have a message out to Valentine's nurse at [place], but I have not got her back to get more details of her history of present illness. In the ED, she received 1 dose of Levaquin and 1 L of normal saline, so far 2.2 L have been ordered. PAST MEDICAL HISTORY: Please note this is obtained from an old [facility] note from 2014. 1. Diabetes. 2. Diabetic neuropathy. 3. Hypothyroid. 4. Hypertension. 5. Osteoporosis. 6. Osteoarthritis. 7. Dementia. When I asked Valentine what her medical history is, she said "loss of babies." PAST SURGICAL HISTORY: Unknown and unable to be obtained at this time. FAMILY HISTORY: Unknown and unable to be obtained. SOCIAL HISTORY: She lives at [facility]. She appoints her , Hilton, as her proxy; however, her healthcare proxy that came with her from [place] appoints her daughter, Jeny Anand. She has never been a smoker. REVIEW OF SYSTEMS: As per the HPI. Remainder of review of systems is negative. However, it is somewhat limited by delirium. PHYSICAL EXAMINATION GENERAL: This is an alert, elderly female, who is in no distress and is nontoxic appearing. She is alert and greets me as I enter the room and introduces herself. VITAL SIGNS: Temperature 102.9 initially, most recently 99.2; heart rate 86, 107 when she presented; respiratory rate 22; pulse ox 95% on room air; blood pressure 140/50. HEENT: Pupils are 3 mm bilaterally and reactive to light. Oral mucosa is moist. NECK: No JVP or adenopathy. CHEST: She is in a regular rate and rhythm. She has a systolic murmur at the left upper sternal border. Her lungs are clear bilaterally. ABDOMEN: Soft, nontender, nondistended. No guarding or rebound. Her bowel sounds are normoactive. Her liver is palpable at the costal margin. Her spleen is not palpable. She has no CVA tenderness. EXTREMITIES: She has no edema, rashes, or ulcers. Her foot exam is unremarkable. She does have some erythema on the left wrist on the dorsal surface, but it is not warm and nontender. SKIN: She has a stage I sacral erythema with no skin breakdown. NEUROLOGIC: She is oriented to person. Thinks we are in [place] and cannot name the year or the month. She has no nystagmus. Her face is symmetric. She follows all my commands. She makes good eye contact and converses appropriately. Her strength is 5/5 in upper and lower extremities. She is unable to participate in coordination commands or a sensation exam. DIAGNOSTIC STUDIES/LAB DATA: White blood cells 9.1, hemoglobin 12.4, platelets 159. INR is 0.91. Sodium 139, potassium 4.4, chloride 104. BUN 24, creatinine 0.85. Glucose 177. Lactic acid 0.7. CRP 71.7. Urinalysis is positive for nitrites, leuk esterase, white blood cells and bacteria. Imaging: A chest x-ray shows no effusions, infiltrates, or pneumothorax. Her heart is of normal size. This is my read. EKG: Normal sinus rhythm, normal axis, normal intervals, no ST or T-wave changes and LVH. ASSESSMENT AND PLAN: This is an 88-year-old female with history of dementia and diabetes, who presented to the emergency department after she was noted to be febrile and more delirious and is found to have sepsis. 1. Sepsis with a urinary source. She is hemodynamically stable and her lactate is within normal limits. She has received 1 L of her 2.2 L that has been ordered in the emergency department as well as levofloxacin and I will continue maintenance fluids. She has no need for pressors at this time and I will continue IV antibiotics as below. 2. Urinary tract infection. She has history of ESBL E. coli just 1 month ago. Based on this history and her allergies to PENICILLIN and BACTRIM, I will place her on meropenem and we will follow up her cultures. Of note, she also has a culture for Enterococcus faecalis in July 2018. Klebsiella pneumoniae in June 2018, ESBL E. coli in December 2017, so it will be essential to have her urine cultures prior to discharge to ensure correct antibiotics selection. 3. Dementia. As mentioned, I have a call out to [place] to hear her baseline. 4. Diabetes. Continue her home dose of Lantus and correction scale. At this point, she is alert and well appearing and I suspect she will be able to tolerate a diet, so I will keep her on her insulin; however, if this changes, we will adjust her insulin. 5. Hypertension. I am holding her metoprolol in the setting of sepsis. 6. DVT prophylaxis, Lovenox subcutaneously. 7. I have reviewed her MOLST. She is DNR and DNI. 8. Disposition: Admit to inpatient to [address] [place] [address] for sepsis. ADDENDUM: I heard back from Valentine's nurse at [place], Monet. She explains that Valentine's baseline mental status is that she is oriented to self and recognized people, but not to place, and she normally can make her needs known. Regarding the presentation, Monet recalls that at lunch time, Valentine was able to stand and pivot to leave the dining room; however, she normally walks by herself with a walker, so this was unusual for her. She was also less talkative throughout the day. Then at dinner, she noted Valentine to be unable to verbalize when she was attempting to, she could not lift her head forward and could not focus on her. She says her "eyes were going in different directions" and she was reaching for things that were not there. Based on this history, my differential is broadened to include seizure or TIA or stroke. Certainly these symptoms are resolved at this time and a postictal state was not described, but I would like to get a CT head now to further evaluate this presentation. [id number] #: [id number] #: [id number] HAIDER
[2018-11-09] MEDS: NS 0.9% 1000 ML** 1,000 ML IV SCH ×3 (00:34→18:10)
[2018-11-09 06:00] LABS: ABS Eosinophils 0.1 10^3/ul (0-0.6); ABS Lymphocytes 0.8 10^3/ul (1.0-4.8); ABS Monocytes 0.9 10^3/ul (0-0.8); ABS Neutrophils 4.3 10^3/ul (1.5-7.7); Hematocrit 33 % (35-47); Hemoglobin 11.1 g/dL (12.0-16.0); Lymphocyte % 13.7 %; Mean Corpuscular HGB Conc 34 g/dL (31-36); Mean Corpuscular Hemoglobin 33 pg (27-31); Mean Corpuscular Volume 98 fL (80-97); Mean Platelet Volume 9.5 fL (7.4-10.4); Platelet Count 130 10^3/uL (150-450); Red Blood Count 3.35 10^6 /uL (3.70-4.87); Red Cell Distribution Width 14 % (10-15); White Blood Count 6.1 10^3/uL (3.5-10.8)
[2018-11-09] MEDS ORDERED: Levothyroxine TAB* 100 MCG TAB PO SCH (06:00)
[2018-11-09 06:18] LABS: BUN/Creatinine Ratio 28.1 (8-20); Calcium 8.6 mg/dL (8.6-10.3); EGFR African American 121.4 (>60); EGFR Non-African American 100.3 (>60); Potassium 3.6 mmol/L (3.5-5.0)
[2018-11-09] MEDS: Meropenem 1 GM PREMIX(*) 1 GM/50 ML BAG IV SCH ×3 (06:35→23:10)
[2018-11-09 08:09] LABS: TSH (Thyroid Stimulating Horm) 0.77 mcIU/mL (0.34-5.60)
[2018-11-09] MEDS: Insulin LISPRO* 1 UNITS UNIT SUBCUT SCH ×3 (08:29→17:13)
[2018-11-09] MEDS: Acetaminophen TAB* 325 MG PO PRN ×2 (08:46→21:43)
[2018-11-09] MEDS ORDERED: Insulin GLARGINE(*) 1 UNITS UNIT SUBCUT SCH (09:00)
[2018-11-09] MEDS: Gabapentin CAP(*) 300 MG PO SCH ×3 (09:05→21:23)
[2018-11-09] MEDS: Famotidine TAB* 20 MG PO SCH (09:05)
--- NOTE | 2018-11-09 11:03 | PN ---
Subjective Date of Service: 11/09/18 Interval History: Received call from Microbiology as one bottle of four blood cultures has so far grown Gram Negative Bacilli. On assessment patient is sitting in bed feeding self without difficulty. She is alert to self, but not place or situation (which per hx obtained from Al from previous provider is her baseline). Patient does report burning and increase urination when asked direct questions. She denies abd pain, nausea, vomiting, cp, sob, palpitations, fever, chills, weakness, dizziness. Objective Active Medications: Acetaminophen (Tylenol Tab*) 650 mg PO Q4H PRN PRN Reason: FEVER/PAIN Last Admin: 11/09/18 08:46 Dose: 650 mg Al Hydrox/Mg Hydrox/Simethicone (Maalox Plus*) 30 ml PO Q6H PRN PRN Reason: INDIGESTION Enoxaparin Sodium (Lovenox(*)) 40 mg SUBCUT BEDTIME [facility] Last Admin: 11/08/18 23:44 Dose: 40 mg Famotidine (Pepcid Tab*) 20 mg PO DAILY [facility] Last Admin: 11/09/18 09:05 Dose: 20 mg Gabapentin (Neurontin Cap(*)) 300 mg PO TID [facility] Last Admin: 11/09/18 09:05 Dose: 300 mg Meropenem (Merrem 1 Gm Premix(*)) 1 gm in 50 mls @ 100 mls/hr IV Q8H [facility]; Protocol Last Admin: 11/09/18 06:35 Dose: 100 mls/hr Sodium Chloride (Ns 0.9% 1000 Ml) 1,000 mls @ 150 mls/hr IV PER RATE [facility] Last Admin: 11/09/18 08:49 Dose: 150 mls/hr Insulin Glargine (Lantus(*)) 10 units SUBCUT QAM [facility] Last Admin: 11/09/18 09:05 Dose: 10 units Insulin Human Lispro (Humalog*) 0 - 10 units SUBCUT AC [facility] Last Admin: 11/09/18 08:29 Dose: Not Given Levothyroxine Sodium (Synthroid Tab*) 100 mcg PO DAILY@0600 [facility] Last Admin: 11/09/18 06:35 Dose: 100 mcg Vital Signs - 8 hr 11/09/18 11/09/18 11/09/18 05:06 08:06 08:44 Temperature 99.3 F 100.5 F Pulse Rate 91 79 Respiratory 20 18 16 Rate Blood Pressure 132/47 140/40 (mmHg) O2 Sat by Pulse 93 93 95 Oximetry 11/09/18 09:05 Temperature Pulse Rate Respiratory 18 Rate Blood Pressure (mmHg) O2 Sat by Pulse Oximetry Oxygen Devices in Use Now: None Appearance: Comfortable, NAD Eyes: No Scleral Icterus Ears/Nose/Mouth/Throat: Clear Oropharnyx, Mucous Membranes Moist Neck: NL Appearance and Movements; NL JVP Respiratory: Symmetrical Chest Expansion and Respiratory Effort, Clear to Auscultation Cardiovascular: NL Sounds; No Murmurs; No JVD, RRR, No Edema Abdominal: NL Sounds; No Tenderness; No Distention Lymphatic: No Cervical Adenopathy Extremities: No Clubbing, Cyanosis Skin: No Rash or Ulcers Neurological: NL Muscle Strength and Tone, - - Alert to self only. Nutrition: Taking PO's Result Diagrams: 11/09/18 05:20 11/09/18 05:20 Additional Lab and Data: Laboratory Results - last 24 hr 11/08/18 11/08/18 11/08/18 19:41 19:41 19:41 WBC 9.1 RBC 3.75 Hgb 12.4 Hct 37 MCV 99 H MCH 33 H MCHC 33 RDW 13 Plt Count 159 MPV 9.3 Neut % (Auto) 76.4 Lymph % (Auto) 8.3 Rich % (Auto) 13.6 Eos % (Auto) 1.2 Baso % (Auto) 0.5 Absolute Neuts (auto) 7.0 Absolute Lymphs (auto) 0.8 L Absolute Monos (auto) 1.2 H Absolute Eos (auto) 0.1 Absolute Basos (auto) 0.0 Absolute Nucleated RBC 0.0 Nucleated RBC % 0.0 INR (Anticoag Therapy) 0.91 APTT 22.5 L Sodium 139 Potassium 4.4 Chloride 104 Carbon Dioxide 28 Anion Gap 7 BUN 24 Creatinine 0.85 Est GFR ( Amer) 76.6 Est GFR (Non-Af Amer) 63.3 BUN/Creatinine Ratio 28.2 H Glucose 177 H POC Glucose (mg/dL) Lactic Acid Calcium 9.9 Total Bilirubin 0.50 AST 16 ALT 13 Alkaline Phosphatase 71 Troponin I 0.01 C-Reactive Protein 71.77 H Total Protein 7.5 Albumin 4.0 Globulin 3.5 Albumin/Globulin Ratio 1.1 TSH Urine Color Urine Appearance Urine pH Ur Specific [place] Urine Protein Urine Ketones Urine Blood Urine Nitrate Urine Bilirubin Urine Urobilinogen Ur Leukocyte Esterase Urine WBC (Auto) Urine RBC (Auto) Urine Bacteria Urine Glucose 11/08/18 11/08/18 11/08/18 19:41 20:00 22:57 WBC RBC Hgb Hct MCV MCH MCHC RDW Plt Count MPV Neut % (Auto) Lymph % (Auto) Rich % (Auto) Eos % (Auto) Baso % (Auto) Absolute Neuts (auto) Absolute Lymphs (auto) Absolute Monos (auto) Absolute Eos (auto) Absolute Basos (auto) Absolute Nucleated RBC Nucleated RBC % INR (Anticoag Therapy) APTT Sodium Potassium Chloride Carbon Dioxide Anion Gap BUN Creatinine Est GFR ( Amer) Est GFR (Non-Af Amer) BUN/Creatinine Ratio Glucose POC Glucose (mg/dL) Lactic Acid 0.7 Calcium Total Bilirubin AST ALT Alkaline Phosphatase Troponin I 0.00 C-Reactive Protein Total Protein Albumin Globulin Albumin/Globulin Ratio TSH Urine Color Yellow Urine Appearance Cloudy Urine pH 6.0 Ur Specific [place] 1.014 Urine Protein 1+(30 mg/dl) A Urine Ketones Negative Urine Blood Negative Urine Nitrate Positive A Urine Bilirubin Negative Urine Urobilinogen Negative Ur Leukocyte Esterase 3+ A Urine WBC (Auto) 3+(>20/hpf) A Urine RBC (Auto) Absent Urine Bacteria 1+ A Urine Glucose Negative 11/09/18 11/09/18 11/09/18 05:20 05:20 05:20 WBC 6.1 RBC 3.35 L Hgb 11.1 L Hct 33 L MCV 98 H MCH 33 H MCHC 34 RDW 14 Plt Count 130 L MPV 9.5 Neut % (Auto) 70.6 Lymph % (Auto) 13.7 Rich % (Auto) 14.2 Eos % (Auto) 1.0 Baso % (Auto) 0.5 Absolute Neuts (auto) 4.3 Absolute Lymphs (auto) 0.8 L Absolute Monos (auto) 0.9 H Absolute Eos (auto) 0.1 Absolute Basos (auto) 0.0 Absolute Nucleated RBC 0.0 Nucleated RBC % 0.0 INR (Anticoag Therapy) APTT Sodium 141 Potassium 3.6 Chloride 110 Carbon Dioxide 24 Anion Gap 7 BUN 16 Creatinine 0.57 Est GFR ( Amer) 121.4 Est GFR (Non-Af Amer) 100.3 BUN/Creatinine Ratio 28.1 H Glucose 127 H POC Glucose (mg/dL) Lactic Acid 0.9 Calcium 8.6 Total Bilirubin AST ALT Alkaline Phosphatase Troponin I C-Reactive Protein Total Protein Albumin Globulin Albumin/Globulin Ratio TSH 0.77 Urine Color Urine Appearance Urine pH Ur Specific [place] Urine Protein Urine Ketones Urine Blood Urine Nitrate Urine Bilirubin Urine Urobilinogen Ur Leukocyte Esterase Urine WBC (Auto) Urine RBC (Auto) Urine Bacteria Urine Glucose 11/09/18 07:26 WBC RBC Hgb Hct MCV MCH MCHC RDW Plt Count MPV Neut % (Auto) Lymph % (Auto) Rich % (Auto) Eos % (Auto) Baso % (Auto) Absolute Neuts (auto) Absolute Lymphs (auto) Absolute Monos (auto) Absolute Eos (auto) Absolute Basos (auto) Absolute Nucleated RBC Nucleated RBC % INR (Anticoag Therapy) APTT Sodium Potassium Chloride Carbon Dioxide Anion Gap BUN Creatinine Est GFR ( Amer) Est GFR (Non-Af Amer) BUN/Creatinine Ratio Glucose POC Glucose (mg/dL) 128 H Lactic Acid Calcium Total Bilirubin AST ALT Alkaline Phosphatase Troponin I C-Reactive Protein Total Protein Albumin Globulin Albumin/Globulin Ratio TSH Urine Color Urine Appearance Urine pH Ur Specific [place] Urine Protein Urine Ketones Urine Blood Urine Nitrate Urine Bilirubin Urine Urobilinogen Ur Leukocyte Esterase Urine WBC (Auto) Urine RBC (Auto) Urine Bacteria Urine Glucose Microbiology and Other Data: Microbiology 11/08/18 19:41 Anaerobic Blood Culture - Preliminary Blood Venous 11/08/18 23:50 Nasal Screen MRSA (PCR) - Final Nasal Mrsa Not Detected Diagnostic Imaging: CT Head Without Contrast EXAM DATE/TIME: 11/09/2018 2:00 AM CLINICAL HISTORY: 88 years old, female; Altered mental status/memory loss; Confusion or disorientation; Additional info: Delirium TECHNIQUE: Imaging protocol: Axial computed tomography images of the head without contrast. Radiation optimization: All CT scans at this facility use at least one of these dose optimization techniques: automated exposure control; mA and/or kV adjustment per patient size (includes targeted exams where dose is matched to clinical indication); or iterative reconstruction. COMPARISON: No relevant prior studies available. FINDINGS: Brain: Mild periventricular and subcortical low attenuation without adjacent mass effect. No acute ischemic changes, extra axial fluid collections, intraparenchymal hemorrhage, or midline shift. Ventricles: The ventricles and extraventricular CSF spaces are widened although symmetrically positioned along the midline. Bones/joints: Normal. No acute fracture. Sinuses: Visualized sinuses are normal. No acute sinusitis. Mastoid air cells: Visualized mastoid air cells are normal. No mastoid effusion. Soft tissues: Normal. Vasculature: The vasculature demonstrates diffuse moderate atherosclerotic calcification. IMPRESSION: 1. No acute intracranial abnormality. 2. Age-related atrophy and mild chronic small vessel ischemic disease. Assess/Plan/Problems-Billing Assessment: 88 yr old female with pmh of DM, Diabetic Neuropathy, Hypothyroid, Hypertension , Dementia; who presented to ED with reports of delirium, fever, and possible UTI - Patient Problems (1) Sepsis Comment: - Patient met sepsis criteria on admission given tachycardia, fever, and suspected source of urinary tract. - Patient was jernigan cultured, received fluid bolus, and was started on antibiotics (2) UTI (urinary tract infection) Comment: - Suspected source UTI given UA results and what hpi that could be obtained from patient. - Awaiting urine cultures. - Hx of ESBL Ecoli, Enteroccus Faecalis, and Klebsiella Pneumoniae. In addition to allergies to PCN and Sulfa patient started on Meropenem. - Cont Meropenem - Important to have cultures and sensitivities resulted before discharge (3) Altered mental status Comment: - Report from [place] includes difficulty ambulating, lifting head, unable to verbalize, "eye going in different directions", and reaching for things that were not there - Given these reports there was initial concern for TIA, seizure, or stroke. - No postictal state reported, no focal deficits on neuro exam, and brain CT negative - Symptoms suspected to be secondary to infection. - Cont to monitor (4) Bacteremia Comment: - Concern for bacteremia as 1 of 4 blood culture bottles revealed gram neg arielle - Cont Meropenem - Lactic acid and WBC wnl. - Awaiting further blood culture results (5) HTN (hypertension) Comment: - Metoprolol held in setting of sepsis. - Will restart as patient is normotensive and to avoid rebound tachycardia (6) Type 2 diabetes mellitus Comment: - Continue Lantus and Lispro SS. - CC diet (7) Dementia Comment: - Currently at baseline (8) Hypothyroid Comment: - 0.77 TSH - Decreased dose daily dose of Levothyroxine to 75 mcg given age and pmh - Will need repeat TSH in 6 to 8 weeks with PCP (9) DVT prophylaxis Comment: - Lovenox (10) DNR (do not resuscitate) Status and Disposition: Inpatient. Attending: Harleen Huitron
[2018-11-09] MEDS ORDERED: Dextrose 50% Syringe 50 ML* 25 GM/50 ML SYRINGE IV PUSH PRN (16:57)
[2018-11-09] MEDS: Enoxaparin(*) 40 MG/0.4 ML SYR SUBCUT SCH (21:23)
[2018-11-10] MEDS: NS 0.9% 1000 ML** 1,000 ML IV SCH ×3 (02:15→21:20)
[2018-11-10] MEDS: Levothyroxine TAB* 75 MCG TAB PO SCH (05:57)
[2018-11-10 07:07] LABS: ABS Eosinophils 0.1 10^3/ul (0-0.6); ABS Lymphocytes 0.8 10^3/ul (1.0-4.8); ABS Monocytes 0.8 10^3/ul (0-0.8); Eosinophil % 2.1 %; Hematocrit 35 % (35-47); Hemoglobin 11.9 g/dL (12.0-16.0); Lymphocyte % 14.5 %; Mean Corpuscular HGB Conc 34 g/dL (31-36); Mean Corpuscular Hemoglobin 34 pg (27-31); Mean Corpuscular Volume 99 fL (80-97); Mean Platelet Volume 9.2 fL (7.4-10.4); Nucleated Red Blood Cells % 0.1; Platelet Count 136 10^3/uL (150-450); Red Blood Count 3.53 10^6 /uL (3.70-4.87); Red Cell Distribution Width 13 % (10-15); White Blood Count 5.7 10^3/uL (3.5-10.8)
[2018-11-10 07:27] LABS: BUN/Creatinine Ratio 18.3 (8-20); Calcium 8.7 mg/dL (8.6-10.3); EGFR African American 114.4 (>60); EGFR Non-African American 94.6 (>60); Potassium 3.7 mmol/L (3.5-5.0)
[2018-11-10] MEDS ORDERED: NS 0.9% 1000 ML** 1,000 ML IV ONE (08:20)
[2018-11-10] MEDS: Insulin LISPRO* 1 UNITS UNIT SUBCUT SCH ×3 (09:10→17:49)
[2018-11-10] MEDS: Meropenem 1 GM PREMIX(*) 1 GM/50 ML BAG IV SCH ×2 (09:28→17:10)
[2018-11-10] MEDS: Gabapentin CAP(*) 300 MG PO SCH ×3 (09:28→21:16)
[2018-11-10] MEDS: Insulin GLARGINE(*) 1 UNITS UNIT SUBCUT SCH (09:29)
[2018-11-10] MEDS: Famotidine TAB* 20 MG PO SCH (09:30)
--- NOTE | 2018-11-10 14:15 | PN ---
Subjective Date of Service: 11/10/18 Interval History: Received call from RN this morning that patient was febrile and had positive blood cultures. Given increase in temp lactic acid, repeat blood cultures, and IVF bolus ordered. Placed called to microbiology as I am still awaiting urine cultures and they report a reflex culture was not completed on current UA, therefore, they would start one today but would take approx 8 hrs. They report that patient had outpatient UA on the day of admission which is growing > 100, 000 Ecoli. Sitting up in bed on assessment. Patient oriented to self and place today which is an improvement from yesterday as she was only oriented to self. Patient denies urinary symptoms today. Denies chills, diaphoresis, cp, sob, nausea. Objective Active Medications: Acetaminophen (Tylenol Tab*) 650 mg PO Q4H PRN PRN Reason: FEVER/PAIN Last Admin: 11/09/18 21:43 Dose: 650 mg Al Hydrox/Mg Hydrox/Simethicone (Maalox Plus*) 30 ml PO Q6H PRN PRN Reason: INDIGESTION Dextrose (D50w Syringe 50 Ml*) 25 gm IV PUSH .FOR FS < 60 - SS PRN PRN Reason: FS < 60 Enoxaparin Sodium (Lovenox(*)) 40 mg SUBCUT BEDTIME [facility] Last Admin: 11/09/18 21:23 Dose: 40 mg Famotidine (Pepcid Tab*) 20 mg PO DAILY EMILY Last Admin: 11/10/18 09:30 Dose: 20 mg Gabapentin (Neurontin Cap(*)) 300 mg PO TID EIMLY Last Admin: 11/10/18 09:28 Dose: 300 mg Meropenem (Merrem 1 Gm Premix(*)) 1 gm in 50 mls @ 100 mls/hr IV Q8H [facility]; Protocol Last Admin: 11/10/18 09:28 Dose: 100 mls/hr Sodium Chloride (Ns 0.9% 1000 Ml) 1,000 mls @ 150 mls/hr IV PER RATE [facility] Last Admin: 11/10/18 12:28 Dose: 150 mls/hr Insulin Glargine (Lantus(*)) 5 units SUBCUT QAM EMILY Last Admin: 11/10/18 09:29 Dose: 5 units Insulin Human Lispro (Humalog*) 0 - 10 units SUBCUT AC [facility] Last Admin: 11/10/18 12:11 Dose: Not Given Levothyroxine Sodium (Synthroid Tab*) 75 mcg PO DAILY@0600 [facility] Last Admin: 11/10/18 05:57 Dose: 75 mcg Vital Signs - 8 hr 11/10/18 11/10/18 11/10/18 08:00 08:20 09:28 Temperature 102.1 F Pulse Rate 91 Respiratory 16 20 20 Rate Blood Pressure 175/53 (mmHg) O2 Sat by Pulse 94 Oximetry 11/10/18 11:45 Temperature 100.3 F Pulse Rate 79 Respiratory 20 Rate Blood Pressure 143/59 (mmHg) O2 Sat by Pulse 98 Oximetry Oxygen Devices in Use Now: None Appearance: Comfortable, NAD Eyes: No Scleral Icterus Ears/Nose/Mouth/Throat: Clear Oropharnyx, Mucous Membranes Moist Neck: NL Appearance and Movements; NL JVP Respiratory: Symmetrical Chest Expansion and Respiratory Effort, Clear to Auscultation Cardiovascular: NL Sounds; No Murmurs; No JVD, RRR, No Edema Abdominal: NL Sounds; No Tenderness; No Distention, - - No CVA tenderness Lymphatic: No Cervical Adenopathy Extremities: No Clubbing, Cyanosis Skin: No Rash or Ulcers Neurological: - - Alert. Oriented to self and place. Nutrition: Taking PO's Result Diagrams: 11/10/18 06:50 11/10/18 06:50 Additional Lab and Data: Laboratory Results - last 24 hr 11/09/18 11/09/18 11/09/18 16:50 17:15 21:27 WBC RBC Hgb Hct MCV MCH MCHC RDW Plt Count MPV Neut % (Auto) Lymph % (Auto) [place] % (Auto) Eos % (Auto) Baso % (Auto) Absolute Neuts (auto) Absolute Lymphs (auto) Absolute Monos (auto) Absolute Eos (auto) Absolute Basos (auto) Absolute Nucleated RBC Nucleated RBC % Sodium Potassium Chloride Carbon Dioxide Anion Gap BUN Creatinine Est GFR ( Amer) Est GFR (Non-Af Amer) BUN/Creatinine Ratio Glucose POC Glucose (mg/dL) 57 L 89 189 H Lactic Acid Calcium 11/10/18 11/10/18 11/10/18 06:01 06:50 06:50 WBC 5.7 RBC 3.53 L Hgb 11.9 L Hct 35 MCV 99 H MCH 34 H MCHC 34 RDW 13 Plt Count 136 L MPV 9.2 Neut % (Auto) 69.4 Lymph % (Auto) 14.5 [place] % (Auto) 13.6 Eos % (Auto) 2.1 Baso % (Auto) 0.4 Absolute Neuts (auto) 4.0 Absolute Lymphs (auto) 0.8 L Absolute Monos (auto) 0.8 Absolute Eos (auto) 0.1 Absolute Basos (auto) 0.0 Absolute Nucleated RBC 0.0 Nucleated RBC % 0.1 Sodium 141 Potassium 3.7 Chloride 110 Carbon Dioxide 23 Anion Gap 8 BUN 11 Creatinine 0.60 Est GFR ( Amer) 114.4 Est GFR (Non-Af Amer) 94.6 BUN/Creatinine Ratio 18.3 Glucose 112 H POC Glucose (mg/dL) 95 Lactic Acid Calcium 8.7 11/10/18 11/10/18 11/10/18 08:09 08:41 11:24 WBC RBC Hgb Hct MCV MCH MCHC RDW Plt Count MPV Neut % (Auto) Lymph % (Auto) [place] % (Auto) Eos % (Auto) Baso % (Auto) Absolute Neuts (auto) Absolute Lymphs (auto) Absolute Monos (auto) Absolute Eos (auto) Absolute Basos (auto) Absolute Nucleated RBC Nucleated RBC % Sodium Potassium Chloride Carbon Dioxide Anion Gap BUN Creatinine Est GFR ( Amer) Est GFR (Non-Af Amer) BUN/Creatinine Ratio Glucose POC Glucose (mg/dL) 95 97 Lactic Acid 1.2 Calcium Microbiology and Other Data: Microbiology 11/08/18 19:41 Aerobic Blood Culture - Preliminary Blood Venous Escherichia Coli Anaerobic Blood Culture - Preliminary Escherichia Coli 11/08/18 19:49 Aerobic Blood Culture - Preliminary Blood Venous No Growth Day 1 Anaerobic Blood Culture - Preliminary No Growth Day 1 11/08/18 23:50 Nasal Screen MRSA (PCR) - Final Nasal Mrsa Not Detected Diagnostic Imaging: CT Head Without Contrast EXAM DATE/TIME: 11/09/2018 2:00 AM CLINICAL HISTORY: 88 years old, female; Altered mental status/memory loss; Confusion or disorientation; Additional info: Delirium TECHNIQUE: Imaging protocol: Axial computed tomography images of the head without contrast. Radiation optimization: All CT scans at this facility use at least one of these dose optimization techniques: automated exposure control; mA and/or kV adjustment per patient size (includes targeted exams where dose is matched to clinical indication); or iterative reconstruction. COMPARISON: No relevant prior studies available. FINDINGS: Brain: Mild periventricular and subcortical low attenuation without adjacent mass effect. No acute ischemic changes, extra axial fluid collections, intraparenchymal hemorrhage, or midline shift. Ventricles: The ventricles and extraventricular CSF spaces are widened although symmetrically positioned along the midline. Bones/joints: Normal. No acute fracture. Sinuses: Visualized sinuses are normal. No acute sinusitis. Mastoid air cells: Visualized mastoid air cells are normal. No mastoid effusion. Soft tissues: Normal. Vasculature: The vasculature demonstrates diffuse moderate atherosclerotic calcification. IMPRESSION: 1. No acute intracranial abnormality. 2. Age-related atrophy and mild chronic small vessel ischemic disease. Assess/Plan/Problems-Billing Assessment: 88 yr old female with pmh of DM, Diabetic Neuropathy, Hypothyroid, Hypertension , Dementia; who presented to ED with reports of delirium, fever, and possible UTI - Patient Problems (1) Sepsis Comment: - Repeat fever today. Repeat blood cultures and lactic acid ordered. Bilateral renal ultrasound ordered. Additional IVF bolus given. Abx not broadened as patient is on Meropenem and blood culture and urine culture growing Ecoli. Patient also has ESBL E Coli hx. - Patient met sepsis criteria on admission given tachycardia, fever, and suspected source of urinary tract. (2) UTI (urinary tract infection) Comment: - Outpatient urine culture growing > 100,000 Ecoli per micro tech. Awaiting culture on inpatient UA - Hx of ESBL Ecoli, Enteroccus Faecalis, and Klebsiella Pneumoniae. In addition to allergies to PCN and Sulfa patient started on Meropenem. - Cont Meropenem - Important to have cultures and sensitivities resulted before discharge (3) Altered mental status Comment: - Suspected secondary to infection - Report from Al includes difficulty ambulating, lifting head, unable to verbalize, "eye going in different directions", and reaching for things that were not there - Given these reports there was initial concern for TIA, seizure, or stroke. - No postictal state reported, no focal deficits on neuro exam, and brain CT negative - Cont to monitor (4) Bacteremia Comment: - Repeat blood cultures ordered today - Blood cultures from admisson grew E coli in 2 of 4 blood culture bottles - Cont Meropenem - Lactic acid and WBC wnl. - Consult requested for Dr Friedman given dx of bacteremia (5) HTN (hypertension) Comment: - Metoprolol held in setting of sepsis. - Will restart as patient is normotensive and to avoid rebound tachycardia (6) Type 2 diabetes mellitus Comment: - Continue Lantus and Lispro SS. - CC diet (7) Dementia Comment: - Currently at baseline (8) Hypothyroid Comment: - 0.77 TSH - Decreased dose daily dose of Levothyroxine to 75 mcg given age and pmh - Will need repeat TSH in 6 to 8 weeks with PCP (9) DVT prophylaxis Comment: - Lovenox (10) DNR (do not resuscitate) Status and Disposition: Inpatient. Attending: Antonette Hines
[2018-11-10] MEDS: Enoxaparin(*) 40 MG/0.4 ML SYR SUBCUT SCH (21:15)
[2018-11-10] MEDS: Acetaminophen TAB* 325 MG PO PRN (21:18)
[2018-11-11] MEDS: Meropenem 1 GM PREMIX(*) 1 GM/50 ML BAG IV SCH ×2 (00:19→07:36)
[2018-11-11] MEDS ORDERED: Metoprolol Tartrate IV* 1 MG/ML 5 ML VIAL IV PRN (01:24)
[2018-11-11] MEDS ORDERED: Metoprolol Tartrate IV* 1 MG/ML 5 ML VIAL ONE (01:38)
[2018-11-11] MEDS ORDERED: Metoprolol Tartrate IV* 1 MG/ML 5 ML VIAL IV ONE (01:47)
[2018-11-11] MEDS ORDERED: NS 0.9% 500 ML* 500 ML IV ONE (01:50)
[2018-11-11] MEDS: Metoprolol Tartrate TAB* 25 MG PO SCH ×3 (01:55→20:32)
--- NOTE | 2018-11-11 02:05 | PN ---
Hospitalist Progress Note Date of Service: 11/11/18 Ms. Ibarra went in to afib with RVR to the 150s when she was on the commode. When her nurse went to move her from the commode to the bed, she had a brief episode of unresponsiveness, and when they lied her flat in the bed she regained consciousness. Prior to syncope, her bp was 90 systolic. When I arrived, she is awake in bed and mentating at her baseline (pleasant, confused) . HR still in 150s and BP 120/60. She had no complaints and said she felt good. HR tachycardic and irregular, lungs clear b/l, face symmetric, strength 5 /5 in all extremities, coordination difficult to test due to dementia. We pushed 5mg metoprolol and hung 1L NS wide open. HR decreased to 110s-120s. Home metoprolol has been on hold due to sepsis; will give now dose of her home dose and continue to monitor
[2018-11-11] MEDS: NS 0.9% 1000 ML** 1,000 ML IV SCH ×2 (02:12→08:41)
[2018-11-11 05:47] LABS: ABS Eosinophils 0.1 10^3/ul (0-0.6); ABS Monocytes 0.9 10^3/ul (0-0.8); ABS Neutrophils 4.2 10^3/ul (1.5-7.7); Eosinophil % 1.4 %; Hematocrit 37 % (35-47); Hemoglobin 12.2 g/dL (12.0-16.0); Mean Corpuscular HGB Conc 33 g/dL (31-36); Mean Corpuscular Hemoglobin 33 pg (27-31); Mean Corpuscular Volume 99 fL (80-97); Mean Platelet Volume 9.2 fL (7.4-10.4); Platelet Count 158 10^3/uL (150-450); Red Blood Count 3.68 10^6 /uL (3.70-4.87); Red Cell Distribution Width 13 % (10-15); White Blood Count 6.3 10^3/uL (3.5-10.8)
[2018-11-11] MEDS: Levothyroxine TAB* 75 MCG TAB PO SCH (05:48)
[2018-11-11 05:58] LABS: Calcium 8.6 mg/dL (8.6-10.3); EGFR African American 141.2 (>60); EGFR Non-African American 116.7 (>60); Potassium 3.4 mmol/L (3.5-5.0)
[2018-11-11] MEDS: Insulin LISPRO* 1 UNITS UNIT SUBCUT SCH ×3 (07:43→17:00)
[2018-11-11] MEDS: Famotidine TAB* 20 MG PO SCH (08:40)
[2018-11-11] MEDS: Gabapentin CAP(*) 300 MG PO SCH ×3 (08:40→20:32)
[2018-11-11] MEDS: Insulin GLARGINE(*) 1 UNITS UNIT SUBCUT SCH (08:41)
[2018-11-11] MEDS ORDERED: Metoprolol Tartrate TAB* 25 MG PO SCH (09:00)
--- NOTE | 2018-11-11 10:49 | CONS ---
CONSULTATION REPORT: DATE OF CONSULT: 11/11/18 REQUESTING PHYSICIAN: Dr. Mc. CONSULTING SERVICE: Infectious Disease. REASON FOR CONSULT: Urinary tract infection complicated by bacteremia. IMPRESSION: 1. Escherichia coli cystitis with bacteremia 2/4 bottles sensitive to everything other than Bactrim. This was complicated by encephalopathy in the setting of a baseline dementia. A renal ultrasound was unremarkable. 2. Atrial fibrillation with rapid ventricular response. 3. Type 2diabetes with neuropathy. 4. Allergy to PENICILLIN and SULFA. RECOMMENDATIONS: 1. Stop meropenem. 2. Start ceftriaxone 1 g a day, shortly we will switch her to an oral antibiotic, probably a cephalosporin assuming she tolerates the ceftriaxone quite well. We will follow her mental status and her fever which has improved. HISTORY OF PRESENT ILLNESS: This is an 88-year-old woman with some dementia who cannot provide history of present of illness which is obtained as said from review of the medical records. She lives at [facility] and was found to be acting less herself, not making sense, not able to take care of herself as she usually would. Her urine culture from 11/08/18 is growing an E. coli that was obtained as an outpatient, but because her condition was worsening and of a fever, she was sent to the emergency room. Blood cultures taken there, 2/4 bottles were growing E coli as well. Followup cultures from 11/10/18 are now negative after initially Levaquin and meropenem. She had brief thrombocytopenia which is resolving. She had some change in her baseline mental status and conditioning which are still not back to baseline. A brain CT scan showed no acute changes. She denies pain, fever, irritation with urination or diarrhea. The nurse confirms no diarrhea. PAST MEDICAL HISTORY: 1. Dementia. 2. Diabetes type 2. 3. Atrial fibrillation. 4. Peripheral neuropathy. 5. Hypothyroidism. 6. Hypertension. 7. Osteoporosis. 8. Osteoarthritis. MEDICATIONS: 1. Meropenem 1 g every 8 hours. 2. Tylenol. 3. Enoxaparin. 4. Famotidine. 5. Gabapentin. 6. Insulin glargine. 7. Insulin lispro. 8. Levothyroxine. 9. Metoprolol. ALLERGIES: PENICILLIN and SULFA. FAMILY HISTORY: Unknown. SOCIAL HISTORY: She lives at [facility]. 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 She has no sick contacts. REVIEW OF SYSTEMS: All negative except as noted above to a 12-point review. PHYSICAL EXAM: Vital Signs: Temperature 37, heart rate 70, respiratory rate 20 , blood pressure 133/51, oxygen saturation 97% on room air. In general, she is awake, not in distress. Neurologic: She is oriented to self only but answers other questions and follows commands. She moves all extremities. HEENT: There is no conjunctival hemorrhage. Oropharynx without lesions. Neck is supple without mass. Heart is regular rate and rhythm without murmurs, rubs or gallops. Lungs are clear to auscultation bilaterally. Abdomen: Soft, nontender, nondistended. There are bowel sounds present. There is no flank tenderness to palpation. Skin: There is no rash or splinter hemorrhage. Musculoskeletal: There is no spine tenderness to palpation. DIAGNOSTIC STUDIES/LAB DATA: White blood cell count 6.3, hemoglobin 12.2, platelets 155, MCV 99, creatinine 0.5. Please see impression and recommendations outlined above. Thank you for asking me to see Ms. Ibarra in consultation. [id number]/[facility] #: [id number] [facility] HOSPITALMaria Fernanda
[2018-11-11] MEDS: cefTRIAXone(*) 1 GM in NS 0.9% 50 ML* 50 ML IVPB SCH (14:27)
--- NOTE | 2018-11-11 16:52 | PN ---
Subjective Date of Service: 11/11/18 Interval History: Patient seen and examined. Confused but answers questions and follows commands. HR controlled today, no further RVR noted. Patient ambulated with PT. Does not endorse any complaints. Denies fevers or chills, no palpitations, no chest pain , no SOB. Objective Active Medications: Acetaminophen (Tylenol Tab*) 650 mg PO Q4H PRN PRN Reason: FEVER/PAIN Last Admin: 11/10/18 21:18 Dose: 650 mg Al Hydrox/Mg Hydrox/Simethicone (Maalox Plus*) 30 ml PO Q6H PRN PRN Reason: INDIGESTION Dextrose (D50w Syringe 50 Ml*) 25 gm IV PUSH .FOR FS < 60 - SS PRN PRN Reason: FS < 60 Enoxaparin Sodium (Lovenox(*)) 40 mg SUBCUT BEDTIME [facility] Last Admin: 11/10/18 21:15 Dose: 40 mg Famotidine (Pepcid Tab*) 20 mg PO DAILY [facility] Last Admin: 11/11/18 08:40 Dose: 20 mg Gabapentin (Neurontin Cap(*)) 300 mg PO TID [facility] Last Admin: 11/11/18 14:27 Dose: 300 mg Ceftriaxone Sodium 1 gm/ (Sodium Chloride) 50 mls @ 200 mls/hr IVPB Q24H [facility] Last Admin: 11/11/18 14:27 Dose: 200 mls/hr Insulin Glargine (Lantus(*)) 5 units SUBCUT QAM [facility] Last Admin: 11/11/18 08:41 Dose: 5 units Insulin Human Lispro (Humalog*) 0 - 10 units SUBCUT AC [facility] Last Admin: 11/11/18 11:47 Dose: Not Given Levothyroxine Sodium (Synthroid Tab*) 75 mcg PO DAILY@0600 [facility] Last Admin: 11/11/18 05:48 Dose: 75 mcg Metoprolol Tartrate (Lopressor Iv*) 5 mg IV Q6H PRN PRN Reason: BLOOD PRESSURE Last Admin: 11/11/18 01:45 Dose: 5 mg Metoprolol Tartrate (Lopressor Tab*) 12.5 mg PO BID [facility] Last Admin: 11/11/18 08:40 Dose: 12.5 mg Vital Signs - 8 hr 11/11/18 11/11/18 11/11/18 11:11 11:45 14:27 Temperature 98.8 F Pulse Rate 68 Respiratory 18 18 18 Rate Blood Pressure 139/50 (mmHg) O2 Sat by Pulse 100 Oximetry 11/11/18 16:00 Temperature 97.8 F Pulse Rate 74 Respiratory 16 Rate Blood Pressure 161/59 (mmHg) O2 Sat by Pulse 100 Oximetry Oxygen Devices in Use Now: None Appearance: alert, confused, NAD Eyes: No Scleral Icterus, PERRLA Ears/Nose/Mouth/Throat: NL Teeth, Lips, Gums, Mucous Membranes Moist Neck: NL Appearance and Movements; NL JVP, Trachea Midline Respiratory: Symmetrical Chest Expansion and Respiratory Effort, Clear to Auscultation Cardiovascular: NL Sounds; No Murmurs; No JVD, RRR, No Edema Abdominal: NL Sounds; No Tenderness; No Distention Extremities: No Edema, No Clubbing, Cyanosis Skin: No Rash or Ulcers Neurological: - - alert, confused, using gait belt and walker with 1 assist Nutrition: Taking PO's Result Diagrams: 11/11/18 05:20 11/11/18 05:20 Additional Lab and Data: Laboratory Results - last 24 hr 11/09/18 11/09/18 11/09/18 16:50 17:15 21:27 WBC RBC Hgb Hct MCV MCH MCHC RDW Plt Count MPV Neut % (Auto) Lymph % (Auto) [place] % (Auto) Eos % (Auto) Baso % (Auto) Absolute Neuts (auto) Absolute Lymphs (auto) Absolute Monos (auto) Absolute Eos (auto) Absolute Basos (auto) Absolute Nucleated RBC Nucleated RBC % Sodium Potassium Chloride Carbon Dioxide Anion Gap BUN Creatinine Est GFR ( Amer) Est GFR (Non-Af Amer) BUN/Creatinine Ratio Glucose POC Glucose (mg/dL) 57 L 89 189 H Lactic Acid Calcium 11/10/18 11/10/18 11/10/18 06:01 06:50 06:50 WBC 5.7 RBC 3.53 L Hgb 11.9 L Hct 35 MCV 99 H MCH 34 H MCHC 34 RDW 13 Plt Count 136 L MPV 9.2 Neut % (Auto) 69.4 Lymph % (Auto) 14.5 [place] % (Auto) 13.6 Eos % (Auto) 2.1 Baso % (Auto) 0.4 Absolute Neuts (auto) 4.0 Absolute Lymphs (auto) 0.8 L Absolute Monos (auto) 0.8 Absolute Eos (auto) 0.1 Absolute Basos (auto) 0.0 Absolute Nucleated RBC 0.0 Nucleated RBC % 0.1 Sodium 141 Potassium 3.7 Chloride 110 Carbon Dioxide 23 Anion Gap 8 BUN 11 Creatinine 0.60 Est GFR ( Amer) 114.4 Est GFR (Non-Af Amer) 94.6 BUN/Creatinine Ratio 18.3 Glucose 112 H POC Glucose (mg/dL) 95 Lactic Acid Calcium 8.7 11/10/18 11/10/18 11/10/18 08:09 08:41 11:24 WBC RBC Hgb Hct MCV MCH MCHC RDW Plt Count MPV Neut % (Auto) Lymph % (Auto) [place] % (Auto) Eos % (Auto) Baso % (Auto) Absolute Neuts (auto) Absolute Lymphs (auto) Absolute Monos (auto) Absolute Eos (auto) Absolute Basos (auto) Absolute Nucleated RBC Nucleated RBC % Sodium Potassium Chloride Carbon Dioxide Anion Gap BUN Creatinine Est GFR ( Amer) Est GFR (Non-Af Amer) BUN/Creatinine Ratio Glucose POC Glucose (mg/dL) 95 97 Lactic Acid 1.2 Calcium Microbiology and Other Data: Microbiology 11/08/18 19:41 Aerobic Blood Culture - Preliminary Blood Venous Escherichia Coli Anaerobic Blood Culture - Preliminary Escherichia Coli 11/08/18 19:49 Aerobic Blood Culture - Preliminary Blood Venous No Growth Day 1 Anaerobic Blood Culture - Preliminary No Growth Day 1 11/08/18 23:50 Nasal Screen MRSA (PCR) - Final Nasal Mrsa Not Detected Diagnostic Imaging: CT Head Without Contrast EXAM DATE/TIME: 11/09/2018 2:00 AM CLINICAL HISTORY: 88 years old, female; Altered mental status/memory loss; Confusion or disorientation; Additional info: Delirium TECHNIQUE: Imaging protocol: Axial computed tomography images of the head without contrast. Radiation optimization: All CT scans at this facility use at least one of these dose optimization techniques: automated exposure control; mA and/or kV adjustment per patient size (includes targeted exams where dose is matched to clinical indication); or iterative reconstruction. COMPARISON: No relevant prior studies available. FINDINGS: Brain: Mild periventricular and subcortical low attenuation without adjacent mass effect. No acute ischemic changes, extra axial fluid collections, intraparenchymal hemorrhage, or midline shift. Ventricles: The ventricles and extraventricular CSF spaces are widened although symmetrically positioned along the midline. Bones/joints: Normal. No acute fracture. Sinuses: Visualized sinuses are normal. No acute sinusitis. Mastoid air cells: Visualized mastoid air cells are normal. No mastoid effusion. Soft tissues: Normal. Vasculature: The vasculature demonstrates diffuse moderate atherosclerotic calcification. IMPRESSION: 1. No acute intracranial abnormality. 2. Age-related atrophy and mild chronic small vessel ischemic disease. Assess/Plan/Problems-Billing Assessment: 88 yr old female with pmh of DM, Diabetic Neuropathy, Hypothyroid, Hypertension , Dementia; who presented to ED with reports of delirium, fever, and possible UTI - Patient Problems (1) Bacteremia Code(s): R78.81 - BACTEREMIA SNOMED Code(s): 4998840 Comment: - Blood cultures from admisson grew E coli in 2 of 4 blood culture bottles - Cont Meropenem, ID following - Lactic acid nl (2) Sepsis Comment: - Resolved - Afebrile today - ID following, changed to ceftriaxone today - s/p fluid bolus yesterday, continue following cultures, source, ecoli in urine, does not appear to be ESBL (3) UTI (urinary tract infection) Comment: - eColi on culture, no ESBL - ID following, changed to ceftriaxone today (4) Atrial fibrillation with RVR Code(s): I48.91 - UNSPECIFIED ATRIAL FIBRILLATION SNOMED Code(s): 074134452865059 Comment: - In setting of sepsis/UTI - Resolved with restarting BB - continue tele (5) Dementia Code(s): F03.90 - UNSPECIFIED DEMENTIA WITHOUT BEHAVIORAL DISTURBANCE SNOMED Code(s): 88811432 Comment: - Currently at baseline (6) DVT prophylaxis Code(s): JUL9480 - SNOMED Code(s): 125579263 Comment: - Lovenox (7) DNR (do not resuscitate) Status and Disposition: Inpatient.
[2018-11-11] MEDS: Enoxaparin(*) 40 MG/0.4 ML SYR SUBCUT SCH (20:32)
[2018-11-12] MEDS: Levothyroxine TAB* 75 MCG TAB PO SCH (05:38)
[2018-11-12] MEDS: Insulin LISPRO* 1 UNITS UNIT SUBCUT SCH ×3 (08:18→17:10)
[2018-11-12] MEDS ORDERED: Potassium Chlor TAB* 20 MEQ TAB.ER PO ONE (08:57)
[2018-11-12] MEDS: Gabapentin CAP(*) 300 MG PO SCH ×3 (09:19→23:03)
[2018-11-12] MEDS: Famotidine TAB* 20 MG PO SCH (09:19)
[2018-11-12] MEDS: Metoprolol Tartrate TAB* 25 MG PO SCH ×2 (09:19→23:03)
[2018-11-12] MEDS: Insulin GLARGINE(*) 1 UNITS UNIT SUBCUT SCH (09:19)
[2018-11-12] MEDS: Acetaminophen TAB* 325 MG PO PRN (11:29)
[2018-11-12] MEDS ORDERED: Ibuprofen TAB* 400 MG PO PRN (13:08)
[2018-11-12] MEDS: cefTRIAXone(*) 1 GM in NS 0.9% 50 ML* 50 ML IVPB SCH (15:02)
--- NOTE | 2018-11-12 17:27 | PN ---
Subjective Date of Service: 11/12/18 Interval History: Patient seen and examined. Remains pleasantly confused, but is complaining about right elbow pain and some restricted range of motion. No trauma per chart (discussed with RN). Denies any further complaints. Objective Active Medications: Acetaminophen (Tylenol Tab*) 650 mg PO Q4H PRN PRN Reason: FEVER/PAIN Last Admin: 11/12/18 11:29 Dose: 650 mg Al Hydrox/Mg Hydrox/Simethicone (Maalox Plus*) 30 ml PO Q6H PRN PRN Reason: INDIGESTION Dextrose (D50w Syringe 50 Ml*) 25 gm IV PUSH .FOR FS < 60 - SS PRN PRN Reason: FS < 60 Enoxaparin Sodium (Lovenox(*)) 40 mg SUBCUT BEDTIME [facility] Last Admin: 11/11/18 20:32 Dose: 40 mg Famotidine (Pepcid Tab*) 20 mg PO DAILY [facility] Last Admin: 11/12/18 09:19 Dose: 20 mg Gabapentin (Neurontin Cap(*)) 300 mg PO TID [facility] Last Admin: 11/12/18 15:02 Dose: 300 mg Ceftriaxone Sodium 1 gm/ (Sodium Chloride) 50 mls @ 200 mls/hr IVPB Q24H [facility] Last Admin: 11/12/18 15:02 Dose: 200 mls/hr Ibuprofen (Motrin Tab*) 400 mg PO Q6H PRN PRN Reason: elbow pain Last Admin: 11/12/18 15:02 Dose: 400 mg Insulin Glargine (Lantus(*)) 5 units SUBCUT QAM [facility] Last Admin: 11/12/18 09:19 Dose: 5 units Insulin Human Lispro (Humalog*) 0 - 10 units SUBCUT AC [facility] Last Admin: 11/12/18 17:10 Dose: Not Given Levothyroxine Sodium (Synthroid Tab*) 75 mcg PO DAILY@0600 [facility] Last Admin: 11/12/18 05:38 Dose: 75 mcg Metoprolol Tartrate (Lopressor Iv*) 5 mg IV Q6H PRN PRN Reason: BLOOD PRESSURE Last Admin: 11/11/18 01:45 Dose: 5 mg Metoprolol Tartrate (Lopressor Tab*) 12.5 mg PO BID [facility] Last Admin: 11/12/18 09:19 Dose: 12.5 mg Vital Signs - 8 hr 11/12/18 11/12/18 11/12/18 11:22 11:23 15:02 Temperature 98.5 F Pulse Rate 58 Respiratory 16 16 18 Rate Blood Pressure 129/46 (mmHg) O2 Sat by Pulse 97 Oximetry 11/12/18 11/12/18 15:24 17:10 Temperature 97.3 F Pulse Rate 67 Respiratory 16 16 Rate Blood Pressure 113/47 (mmHg) O2 Sat by Pulse 100 Oximetry Oxygen Devices in Use Now: None Appearance: alert, NAD Eyes: No Scleral Icterus, PERRLA Ears/Nose/Mouth/Throat: Mucous Membranes Moist Neck: NL Appearance and Movements; NL JVP, Trachea Midline Respiratory: Symmetrical Chest Expansion and Respiratory Effort, Clear to Auscultation Cardiovascular: NL Sounds; No Murmurs; No JVD, RRR, No Edema Abdominal: NL Sounds; No Tenderness; No Distention Extremities: No Clubbing, Cyanosis, - - mild edema to right olecranon process Skin: No Rash or Ulcers Neurological: - - confused, alert Nutrition: Taking PO's Result Diagrams: 11/11/18 05:20 11/11/18 05:20 Additional Lab and Data: Laboratory Results - last 24 hr 11/09/18 11/09/18 11/09/18 16:50 17:15 21:27 WBC RBC Hgb Hct MCV MCH MCHC RDW Plt Count MPV Neut % (Auto) Lymph % (Auto) [place] % (Auto) Eos % (Auto) Baso % (Auto) Absolute Neuts (auto) Absolute Lymphs (auto) Absolute Monos (auto) Absolute Eos (auto) Absolute Basos (auto) Absolute Nucleated RBC Nucleated RBC % Sodium Potassium Chloride Carbon Dioxide Anion Gap BUN Creatinine Est GFR ( Amer) Est GFR (Non-Af Amer) BUN/Creatinine Ratio Glucose POC Glucose (mg/dL) 57 L 89 189 H Lactic Acid Calcium 11/10/18 11/10/18 11/10/18 06:01 06:50 06:50 WBC 5.7 RBC 3.53 L Hgb 11.9 L Hct 35 MCV 99 H MCH 34 H MCHC 34 RDW 13 Plt Count 136 L MPV 9.2 Neut % (Auto) 69.4 Lymph % (Auto) 14.5 Wilson % (Auto) 13.6 Eos % (Auto) 2.1 Baso % (Auto) 0.4 Absolute Neuts (auto) 4.0 Absolute Lymphs (auto) 0.8 L Absolute Monos (auto) 0.8 Absolute Eos (auto) 0.1 Absolute Basos (auto) 0.0 Absolute Nucleated RBC 0.0 Nucleated RBC % 0.1 Sodium 141 Potassium 3.7 Chloride 110 Carbon Dioxide 23 Anion Gap 8 BUN 11 Creatinine 0.60 Est GFR ( Amer) 114.4 Est GFR (Non-Af Amer) 94.6 BUN/Creatinine Ratio 18.3 Glucose 112 H POC Glucose (mg/dL) 95 Lactic Acid Calcium 8.7 11/10/18 11/10/18 11/10/18 08:09 08:41 11:24 WBC RBC Hgb Hct MCV MCH MCHC RDW Plt Count MPV Neut % (Auto) Lymph % (Auto) [place] % (Auto) Eos % (Auto) Baso % (Auto) Absolute Neuts (auto) Absolute Lymphs (auto) Absolute Monos (auto) Absolute Eos (auto) Absolute Basos (auto) Absolute Nucleated RBC Nucleated RBC % Sodium Potassium Chloride Carbon Dioxide Anion Gap BUN Creatinine Est GFR ( Amer) Est GFR (Non-Af Amer) BUN/Creatinine Ratio Glucose POC Glucose (mg/dL) 95 97 Lactic Acid 1.2 Calcium Microbiology and Other Data: Microbiology 11/08/18 19:41 Aerobic Blood Culture - Preliminary Blood Venous Escherichia Coli Anaerobic Blood Culture - Preliminary Escherichia Coli 11/08/18 19:49 Aerobic Blood Culture - Preliminary Blood Venous No Growth Day 1 Anaerobic Blood Culture - Preliminary No Growth Day 1 11/08/18 23:50 Nasal Screen MRSA (PCR) - Final Nasal Mrsa Not Detected Diagnostic Imaging: CT Head Without Contrast EXAM DATE/TIME: 11/09/2018 2:00 AM CLINICAL HISTORY: 88 years old, female; Altered mental status/memory loss; Confusion or disorientation; Additional info: Delirium TECHNIQUE: Imaging protocol: Axial computed tomography images of the head without contrast. Radiation optimization: All CT scans at this facility use at least one of these dose optimization techniques: automated exposure control; mA and/or kV adjustment per patient size (includes targeted exams where dose is matched to clinical indication); or iterative reconstruction. COMPARISON: No relevant prior studies available. FINDINGS: Brain: Mild periventricular and subcortical low attenuation without adjacent mass effect. No acute ischemic changes, extra axial fluid collections, intraparenchymal hemorrhage, or midline shift. Ventricles: The ventricles and extraventricular CSF spaces are widened although symmetrically positioned along the midline. Bones/joints: Normal. No acute fracture. Sinuses: Visualized sinuses are normal. No acute sinusitis. Mastoid air cells: Visualized mastoid air cells are normal. No mastoid effusion. Soft tissues: Normal. Vasculature: The vasculature demonstrates diffuse moderate atherosclerotic calcification. IMPRESSION: 1. No acute intracranial abnormality. 2. Age-related atrophy and mild chronic small vessel ischemic disease. Assess/Plan/Problems-Billing Assessment: 88 yr old female with pmh of DM, Diabetic Neuropathy, Hypothyroid, Hypertension , Dementia; who presented to ED with reports of delirium, fever, and possible UTI. - Patient Problems (1) Bacteremia Code(s): R78.81 - BACTEREMIA SNOMED Code(s): 1167647 Comment: - Blood cultures from admisson grew E coli in 2 of 4 blood culture bottles - Cont Meropenem, ID following - Lactic acid nl - Per ID will DC on keflex x7 days at discharge (2) Sepsis Comment: - Resolved (3) UTI (urinary tract infection) Comment: - eColi on culture, no ESBL - ID following, continue ceftriaxone and change to keflex at discharge (4) Atrial fibrillation with RVR Code(s): I48.91 - UNSPECIFIED ATRIAL FIBRILLATION SNOMED Code(s): 189572647293445 Comment: - In setting of sepsis/UTI - Resolved with restarting BB - continue tele, stable (5) Dementia Code(s): F03.90 - UNSPECIFIED DEMENTIA WITHOUT BEHAVIORAL DISTURBANCE SNOMED Code(s): 41949493 Comment: - Currently at baseline (6) DVT prophylaxis Code(s): RCQ0816 - SNOMED Code(s): 975223111 Comment: - Lovenox (7) DNR (do not resuscitate) Status and Disposition: Inpatient, discharge back to [place] in AM.
[2018-11-12] MEDS: Enoxaparin(*) 40 MG/0.4 ML SYR SUBCUT SCH (23:02)
[2018-11-13] MEDS: Levothyroxine TAB* 75 MCG TAB PO SCH (06:14)
[2018-11-13] MEDS: Insulin LISPRO* 1 UNITS UNIT SUBCUT SCH (08:05)
--- NOTE | 2018-11-13 08:15 | PN ---
Subjective Date of Service: 11/13/18 Interval History: HD # 6 on 11/13 88 F pleasantly demented from [place], [facility] DM c/b neuropathy, hypothyroid who presented with UTI and delirium. Ovenright no acute events, VSS Labs Stable from 11/11 This morning seen eating breakfast, pleasant and well, no further complaints of elbow pain. Objective Active Medications: Acetaminophen (Tylenol Tab*) 650 mg PO Q4H PRN PRN Reason: FEVER/PAIN Last Admin: 11/12/18 11:29 Dose: 650 mg Al Hydrox/Mg Hydrox/Simethicone (Maalox Plus*) 30 ml PO Q6H PRN PRN Reason: INDIGESTION Dextrose (D50w Syringe 50 Ml*) 25 gm IV PUSH .FOR FS < 60 - SS PRN PRN Reason: FS < 60 Enoxaparin Sodium (Lovenox(*)) 40 mg SUBCUT BEDTIME [facility] Last Admin: 11/12/18 23:02 Dose: 40 mg Famotidine (Pepcid Tab*) 20 mg PO DAILY [facility] Last Admin: 11/12/18 09:19 Dose: 20 mg Gabapentin (Neurontin Cap(*)) 300 mg PO TID [facility] Last Admin: 11/12/18 23:03 Dose: 300 mg Ceftriaxone Sodium 1 gm/ (Sodium Chloride) 50 mls @ 200 mls/hr IVPB Q24H [facility] Last Admin: 11/12/18 15:02 Dose: 200 mls/hr Ibuprofen (Motrin Tab*) 400 mg PO Q6H PRN PRN Reason: elbow pain Last Admin: 11/12/18 15:02 Dose: 400 mg Insulin Glargine (Lantus(*)) 5 units SUBCUT QAM [facility] Last Admin: 11/12/18 09:19 Dose: 5 units Insulin Human Lispro (Humalog*) 0 - 10 units SUBCUT AC [facility] Last Admin: 11/13/18 08:05 Dose: Not Given Levothyroxine Sodium (Synthroid Tab*) 75 mcg PO DAILY@0600 [facility] Last Admin: 11/13/18 06:14 Dose: 75 mcg Metoprolol Tartrate (Lopressor Iv*) 5 mg IV Q6H PRN PRN Reason: BLOOD PRESSURE Last Admin: 11/11/18 01:45 Dose: 5 mg Metoprolol Tartrate (Lopressor Tab*) 12.5 mg PO BID [facility] Last Admin: 11/12/18 23:03 Dose: 12.5 mg Vital Signs - 8 hr 11/13/18 11/13/18 01:23 03:10 Temperature 98.0 F Pulse Rate 61 Respiratory 16 16 Rate Blood Pressure 154/45 (mmHg) O2 Sat by Pulse 99 Oximetry Oxygen Devices in Use Now: None Appearance: Pleasant woman in NAD, eating toast Ears/Nose/Mouth/Throat: NL Teeth, Lips, Gums Respiratory: Symmetrical Chest Expansion and Respiratory Effort, Clear to Auscultation Cardiovascular: NL Sounds; No Murmurs; No JVD, RRR Abdominal: NL Sounds; No Tenderness; No Distention, No Hepatosplenomegaly Lymphatic: No Cervical Adenopathy Extremities: No Edema Skin: No Rash or Ulcers Neurological: - - Oriented to self Result Diagrams: 11/11/18 05:20 11/11/18 05:20 Additional Lab and Data: Laboratory Results - last 24 hr 11/09/18 11/09/18 11/09/18 16:50 17:15 21:27 WBC RBC Hgb Hct MCV MCH MCHC RDW Plt Count MPV Neut % (Auto) Lymph % (Auto) [place] % (Auto) Eos % (Auto) Baso % (Auto) Absolute Neuts (auto) Absolute Lymphs (auto) Absolute Monos (auto) Absolute Eos (auto) Absolute Basos (auto) Absolute Nucleated RBC Nucleated RBC % Sodium Potassium Chloride Carbon Dioxide Anion Gap BUN Creatinine Est GFR ( Amer) Est GFR (Non-Af Amer) BUN/Creatinine Ratio Glucose POC Glucose (mg/dL) 57 L 89 189 H Lactic Acid Calcium 11/10/18 11/10/18 11/10/18 06:01 06:50 06:50 WBC 5.7 RBC 3.53 L Hgb 11.9 L Hct 35 MCV 99 H MCH 34 H MCHC 34 RDW 13 Plt Count 136 L MPV 9.2 Neut % (Auto) 69.4 Lymph % (Auto) 14.5 Sunflower % (Auto) 13.6 Eos % (Auto) 2.1 Baso % (Auto) 0.4 Absolute Neuts (auto) 4.0 Absolute Lymphs (auto) 0.8 L Absolute Monos (auto) 0.8 Absolute Eos (auto) 0.1 Absolute Basos (auto) 0.0 Absolute Nucleated RBC 0.0 Nucleated RBC % 0.1 Sodium 141 Potassium 3.7 Chloride 110 Carbon Dioxide 23 Anion Gap 8 BUN 11 Creatinine 0.60 Est GFR ( Amer) 114.4 Est GFR (Non-Af Amer) 94.6 BUN/Creatinine Ratio 18.3 Glucose 112 H POC Glucose (mg/dL) 95 Lactic Acid Calcium 8.7 11/10/18 11/10/18 11/10/18 08:09 08:41 11:24 WBC RBC Hgb Hct MCV MCH MCHC RDW Plt Count MPV Neut % (Auto) Lymph % (Auto) [place] % (Auto) Eos % (Auto) Baso % (Auto) Absolute Neuts (auto) Absolute Lymphs (auto) Absolute Monos (auto) Absolute Eos (auto) Absolute Basos (auto) Absolute Nucleated RBC Nucleated RBC % Sodium Potassium Chloride Carbon Dioxide Anion Gap BUN Creatinine Est GFR ( Amer) Est GFR (Non-Af Amer) BUN/Creatinine Ratio Glucose POC Glucose (mg/dL) 95 97 Lactic Acid 1.2 Calcium Microbiology and Other Data: Microbiology 11/08/18 19:41 Aerobic Blood Culture - Preliminary Blood Venous Escherichia Coli Anaerobic Blood Culture - Preliminary Escherichia Coli 11/08/18 19:49 Aerobic Blood Culture - Preliminary Blood Venous No Growth Day 1 Anaerobic Blood Culture - Preliminary No Growth Day 1 11/08/18 23:50 Nasal Screen MRSA (PCR) - Final Nasal Mrsa Not Detected Diagnostic Imaging: CT Head Without Contrast EXAM DATE/TIME: 11/09/2018 2:00 AM CLINICAL HISTORY: 88 years old, female; Altered mental status/memory loss; Confusion or disorientation; Additional info: Delirium TECHNIQUE: Imaging protocol: Axial computed tomography images of the head without contrast. Radiation optimization: All CT scans at this facility use at least one of these dose optimization techniques: automated exposure control; mA and/or kV adjustment per patient size (includes targeted exams where dose is matched to clinical indication); or iterative reconstruction. COMPARISON: No relevant prior studies available. FINDINGS: Brain: Mild periventricular and subcortical low attenuation without adjacent mass effect. No acute ischemic changes, extra axial fluid collections, intraparenchymal hemorrhage, or midline shift. Ventricles: The ventricles and extraventricular CSF spaces are widened although symmetrically positioned along the midline. Bones/joints: Normal. No acute fracture. Sinuses: Visualized sinuses are normal. No acute sinusitis. Mastoid air cells: Visualized mastoid air cells are normal. No mastoid effusion. Soft tissues: Normal. Vasculature: The vasculature demonstrates diffuse moderate atherosclerotic calcification. IMPRESSION: 1. No acute intracranial abnormality. 2. Age-related atrophy and mild chronic small vessel ischemic disease. Assess/Plan/Problems-Billing Assessment: 88 yr old female with pmh of DM, Diabetic Neuropathy, Hypothyroid, Hypertension , PAF not on AC, Dementia; who presented to ED with reports of delirium, fever, and UTI (with associated bacteremia) improving on abx. - Patient Problems (1) Sepsis Current Visit: Yes Status: Acute Comment: - Resolved (2) Altered mental status Current Visit: Yes Status: Acute Code(s): R41.82 - ALTERED MENTAL STATUS, UNSPECIFIED SNOMED Code(s): 914624018 Comment: - Suspected secondary to infection - Resolved with treatment of UTI (3) Atrial fibrillation with RVR Current Visit: Yes Status: Acute Code(s): I48.91 - UNSPECIFIED ATRIAL FIBRILLATION SNOMED Code(s): 693886774754464 Comment: - In setting of sepsis/UTI - Resolved with restarting BB - continue tele, stable, no indication for AC (4) Bacteremia Current Visit: Yes Status: Acute Code(s): R78.81 - BACTEREMIA SNOMED Code( s): 4313032 Comment: - Blood cultures from admisson grew E coli in 2 of 4 blood culture bottles - Unremarkable renal US - Cont CTX - Lactic acid nl - Per ID will DC on keflex x8 days at discharge for a total of 14 days Currentyl day 10/25 on 11/13 (5) Dementia Current Visit: Yes Status: Acute Code(s): F03.90 - UNSPECIFIED DEMENTIA WITHOUT BEHAVIORAL DISTURBANCE SNOMED Code(s): 69539962 Comment: - Currently at baseline (6) Hypothyroid Current Visit: Yes Status: Acute Code(s): E03.9 - HYPOTHYROIDISM, UNSPECIFIED SNOMED Code(s): 30392118 Comment: - 0.77 TSH - Decreased dose daily dose of Levothyroxine to 75 mcg given age and pmh - Will need repeat TSH in 6 to 8 weeks with PCP (7) DNR (do not resuscitate) Current Visit: No Status: Acute (8) DVT prophylaxis Current Visit: No Status: Acute Code(s): RDV5418 - SNOMED Code(s): 690687688 Comment: - Lovenox Status and Disposition: Inpatient, discharge back to [place] after evaluation
[2018-11-13 08:44] VITALS: BP 134/47
[2018-11-13] MEDS: Gabapentin CAP(*) 300 MG PO SCH (08:55)
[2018-11-13] MEDS: Metoprolol Tartrate TAB* 25 MG PO SCH (08:56)
[2018-11-13] MEDS: Insulin GLARGINE(*) 1 UNITS UNIT SUBCUT SCH (08:56)
[2018-11-13] MEDS: Famotidine TAB* 20 MG PO SCH (08:56)
--- NOTE | 2018-11-13 11:04 | PN ---
Progress Note - Progress Note Date of Service: 11/13/18 SOAP: Subjective: CC: UTI with bacteremia HPI: Ms. Ibarra is an 88 yo female with PMH significant for dementia, DM2, A fib, peripheral neuropathy, osteoporosis, and osteoarthritis who presented to the hospital with complaints of altered mental status and was found to have a UTI and bacteremia. Denies fever, chills, shortness of breath, urinary symptoms, nausea, vomiting, or diarrhea. Objective: Vital Signs - 8 hr 11/13/18 11/13/18 11/13/18 03:10 07:50 08:00 Temperature 98.0 F 98.3 F Pulse Rate 61 66 Respiratory 16 16 16 Rate Blood Pressure 154/45 134/47 (mmHg) O2 Sat by Pulse 99 98 Oximetry Physical Exam: General: NAD, sitting up in a chair Neurological: Alert and Oriented to Person and place HEENT: Moist MM, no thrush Cardiovascular: Heart rate regular Respiratory: Lung sounds clear bilateral Abdominal: Bowel sounds present; ABD soft, non tender, non tender. No CVA tenderness bilateral Skin: No rash Laboratory Last Values WBC 6.3 10^3/uL (3.5-10.8) 11/11/18 05:20 RBC 3.68 10^6 /uL (3.70-4.87) L 11/11/18 05:20 Hgb 12.2 g/dL (12.0-16.0) 11/11/18 05:20 Hct 37 % (35-47) 11/11/18 05:20 MCV 99 fL (80-97) H 11/11/18 05:20 MCH 33 pg (27-31) H 11/11/18 05:20 MCHC 33 g/dL (31-36) 11/11/18 05:20 RDW 13 % (10-15) 11/11/18 05:20 Plt Count 158 10^3/uL (150-450) 11/11/18 05:20 MPV 9.2 fL (7.4-10.4) 11/11/18 05:20 Neut % (Auto) 67.2 % 11/11/18 05:20 Lymph % (Auto) 16.0 % 11/11/18 05:20 [place] % (Auto) 14.8 % 11/11/18 05:20 Eos % (Auto) 1.4 % 11/11/18 05:20 Baso % (Auto) 0.6 % 11/11/18 05:20 Absolute Neuts (auto) 4.2 10^3/ul (1.5-7.7) 11/11/18 05:20 Absolute Lymphs (auto) 1.0 10^3/ul (1.0-4.8) 11/11/18 05:20 Absolute Monos (auto) 0.9 10^3/ul (0-0.8) H 11/11/18 05:20 Absolute Eos (auto) 0.1 10^3/ul (0-0.6) 11/11/18 05:20 Absolute Basos (auto) 0.0 10^3/ul (0-0.2) 11/11/18 05:20 Absolute Nucleated RBC 0.0 10^3/ul 11/11/18 05:20 Nucleated RBC % 0.0 11/11/18 05:20 INR (Anticoag Therapy) 0.91 (0.82-1.09) 11/08/18 19:41 APTT 22.5 seconds (26.0-38.0) L 11/08/18 19:41 Sodium 141 mmol/L (135-145) 11/11/18 05:20 Potassium 3.4 mmol/L (3.5-5.0) L 11/11/18 05:20 Chloride 109 mmol/L (101-111) 11/11/18 05:20 Carbon Dioxide 24 mmol/L (22-32) 11/11/18 05:20 Anion Gap 8 mmol/L (2-11) 11/11/18 05:20 BUN 10 mg/dL (6-24) 11/11/18 05:20 Creatinine 0.50 mg/dL (0.51-0.95) L 11/11/18 05:20 Est GFR ( Amer) 141.2 (>60) 11/11/18 05:20 Est GFR (Non-Af Amer) 116.7 (>60) 11/11/18 05:20 BUN/Creatinine Ratio 20.0 (8-20) 11/11/18 05:20 Glucose 138 mg/dL (70-100) H 11/11/18 05:20 POC Glucose (mg/dL) 99 mg/dL (70-100) 11/13/18 08:00 Lactic Acid 1.0 mmol/L (0.5-2.0) 11/11/18 11:59 Calcium 8.6 mg/dL (8.6-10.3) 11/11/18 05:20 Total Bilirubin 0.50 mg/dL (0.2-1.0) 11/08/18 19:41 AST 16 U/L (13-39) 11/08/18 19:41 ALT 13 U/L (7-52) 11/08/18 19:41 Alkaline Phosphatase 71 U/L (34-104) 11/08/18 19:41 Troponin I 0.00 ng/mL (<0.04) 11/08/18 22:57 C-Reactive Protein 71.77 mg/L (<8.01) H 11/08/18 19:41 Total Protein 7.5 g/dL (6.4-8.9) 11/08/18 19:41 Albumin 4.0 g/dL (3.2-5.2) 11/08/18 19:41 Globulin 3.5 g/dL (2-4) 11/08/18 19:41 Albumin/Globulin Ratio 1.1 (1-3) 11/08/18 19:41 TSH 0.77 mcIU/mL (0.34-5.60) 11/09/18 05:20 Urine Color Yellow 11/08/18 20:00 Urine Appearance Cloudy 11/08/18 20:00 Urine pH 6.0 (5-9) 11/08/18 20:00 Ur Specific [place] 1.014 (1.010-1.030) 11/08/18 20:00 Urine Protein 1+(30 mg/dl) (Negative) A 11/08/18 20:00 Urine Ketones Negative (Negative) 11/08/18 20:00 Urine Blood Negative (Negative) 11/08/18 20:00 Urine Nitrate Positive (Negative) A 11/08/18 20:00 Urine Bilirubin Negative (Negative) 11/08/18 20:00 Urine Urobilinogen Negative (Negative) 11/08/18 20:00 Ur Leukocyte Esterase 3+ (Negative) A 11/08/18 20:00 Urine WBC (Auto) 3+(>20/hpf) (Absent) A 11/08/18 20:00 Urine RBC (Auto) Absent (Absent) 11/08/18 20:00 Urine Bacteria 1+ (Absent) A 11/08/18 20:00 Urine Glucose Negative (Negative) 11/08/18 20:00 Microbiology 11/10/18 08:41 Aerobic Blood Culture - Preliminary Blood Venous No Growth Day 3 Anaerobic Blood Culture - Preliminary No Growth Day 3 11/10/18 08:41 Aerobic Blood Culture - Preliminary Blood Venous No Growth Day 3 Anaerobic Blood Culture - Preliminary No Growth Day 3 11/08/18 19:49 Aerobic Blood Culture - Preliminary Blood Venous No Growth Day 4 Anaerobic Blood Culture - Preliminary No Growth Day 4 11/08/18 20:05 Urine Culture - Final Urine Escherichia Coli 11/08/18 19:41 Aerobic Blood Culture - Final Blood Venous Escherichia Coli Anaerobic Blood Culture - Final Escherichia Coli 11/08/18 23:50 Nasal Screen MRSA (PCR) - Final Nasal Mrsa Not Detected Assessment: 1. E coli UTI with bacteremia. She was found to have E coli in 2/4 blood culture bottles drawn at admission. Repeat blood cultures negative on day 3. Afebrile since 11/10/18 and no leukocytosis. 2. Delirium. Suspect secondary to #1, resolving. 3. DM2. 4. PCN and SULFA allergies Plan: Change ABX to Keflex 500 mg PO BID for total of 14 days. Day 08/25
--- NOTE | 2018-11-13 22:34 | DS ---
DISCHARGE SUMMARY: DATE OF ADMISSION: 11/08/18 DATE OF DISCHARGE: 11/13/18 PRIMARY CARE PROVIDER: Madyson Ball MD DISPOSITION AT THE TIME OF DISCHARGE: Stable to return to [place] where the patient was residing previously. PRIMARY DIAGNOSES: Urinary tract infection and bacteremia. SECONDARY DIAGNOSES: 1. Dementia. 2. Diabetes, complicated by neuropathy. 3. Hypothyroidism. 4. Hypertension. 5. Paroxysmal atrial fibrillation, not on anticoagulation. MEDICATIONS AT THE TIME OF DISCHARGE: 1. Keflex 500 mg p.o. b.i.d. for additional 8 days status post discharge. 2. Levothyroxine 88 mcg p.o. q.a.m. 3. Gabapentin 300 mg p.o. t.i.d. 4. Insulin glargine 10 units subcutaneous q.a.m. 5. Famotidine 20 mg p.o. daily. 6. Vitamin D3 1000 units p.o. q.p.m. 7. Lipoic acid 60 mg p.o. daily. 8. Alendronate 70 mg p.o. weekly. 7. Acetaminophen 500 mg p.o. b.i.d. 8. Insulin lispro 2 units subcutaneously p.r.n. per sliding scale. 9. Metoprolol tartrate 12.5 mg p.o. b.i.d. Medication changes at the time of discharge includes Loryna, levothyroxine from 88 mcg to 75 mcg and the addition of Keflex 500 mg p.o. b.i.d. for an additional 8 days status post discharge. HISTORY OF PRESENT ILLNESS AND HOSPITAL COURSE: An 88-year-old female who usually resides at [facility] presents on 11/08/18 to the emergency room with delirium and fever at [facility]. She is not able to give much of a history, although she does note that she has had pelvic discomfort and dysuria. In the emergency room, she was found to have elevated white blood cell count; urinalysis positive for nitrites, leuk esterase, and white blood cells; normal chest x-ray; normal EKG and otherwise unremarkable labs and was admitted for sepsis, urinary tract infection, dementia complicated by delirium and hospital course problems is as follows: 1. Sepsis. The patient received 30 cc/kg bolus and there was no indication for pressors, lactic acid was low at the time of the admission and she met criteria secondary to elevated white blood cell count, fever, and tachycardia. After fluids as well as antibiotics, sepsis resolved by hospital day 1. 2. Urinary tract infection. The patient was initially placed on meropenem because she has a history of ESBL E. coli. Ultimately cultures were done that showed E. coli in the urine and initial blood cultures were positive for E. coli pansusceptible with the exception of Bactrim also in the blood secondary to the cultures on hospital day 2 and 3, no growth today showing effective clearing of E. coli from blood. The patient was transitioned to ceftriaxone even though she has a PENICILLIN allergy, which she tolerated well and then was discharged on oral Keflex with a total of 14 days given bacteremia. 3. Delirium. The patient's delirium resolved after fever defervesced and sepsis resolved. She remained slightly demented and Al evaluated the patient on date of discharge and felt that she was stable at baseline. 4. Atrial fibrillation, paroxysmal. She has brief atrial fibrillation in the setting of sepsis and UTI, which resolved with restarting her home beta- dianne. There is no indication for anticoagulation and she remained on tele stable and in normal sinus rhythm for the rest of her hospitalization. 5. Hypothyroidism. TSH was mildly low on admission at 0.77. We changed the daily dose to 75 mcg given her age and past medical history. She can follow up with repeat TSH in 6 to 8 weeks with primary care provider. 6. Diabetes. [id number] glucose and home insulin was administered. 7. Diabetic neuropathy. Home gabapentin was administered. On day of discharge , the patient was eating, voiding, and ambulating at her baseline. Al came to evaluate the patient and felt that she has returned to her baseline status. LABS AND STUDIES DONE DURING THIS HOSPITALIZATION: Last lab on 11/11/18 show white blood cell count of 6.3, hemoglobin of 12.12, hematocrit 37. Last CMP done on 11/11/18 shows sodium of 141, potassium 3.5, anion gap at 8 p.m. was 10 , creatinine 0.5, glucose 138; glucose stayed within range, 100 to 200 over the course of her hospitalization. Imaging: A brain CT was done on 11/08/18 which showed no acute intracranial pathology. A chest x-ray was done on 11/08/18 which showed no acute intrathoracic pathology. A renal ultrasound was done on which showed no evidence of abscess, perinephric stranding and no definite hydronephrosis. An EKG was done, which showed atrial fibrillation on 11/11/18 and then resolution to normal sinus rhythm. An elbow radiograph was done on 11/12/18 as the patient had transient complaint of elbow pain and it showed osteopenia and calcific tendinopathy. CONSULTANTS DURING THE HOSPITALIZATION: Include Infectious Disease, who ultimately signed off after her bacteremia cleared. ITEMS TO FOLLOW UP STATUS POST DISCHARGE: 1. Urinary tract infections, jernigan-sensitive E. coli, complicated by bacteremia. Renal ultrasound was negative during this hospitalization. She should complete her course which was prescribed in [place]. 2. Levothyroxine dose change with TSH 0.77 given age and dementia. Liberalize TSH to higher goal. Levothyroxine changed to 75 mcg and this noted to [facility]. 3. Elbow pain. The patient complains of intermittent elbow pain which is consistent with prior calcific tendinopathy and osteoarthritis. PT worked with patient and did not feel that it was significantly limiting her ability to transfer or complete her activities of daily living, can treat with pain medications as needed. On day of discharge, the patient is ambulating at her baseline, voiding freely and feeding herself. Physical exam was done, which can be found on daily progress note. DISPOSITION AT THE TIME OF DISCHARGE: Stable to return to [place]. TIME SPENT: Forty five minutes was spent in the planning of this discharge with over half of that spent directly at the bedside of the patient providing direct patient care. Plan of care was discussed with the patient and her caregivers and they agreed with ultimate return as her presenting symptoms have resolved. If there are any questions about the care of this patient during this hospitalization, please do not hesitate to reach out and contact the [facility]. [id number]/[facility] #: [id number] HAIDER
== END 2018-11-13 12:10 | DRG 872 ==
LOC: ED 18:46 → MEDTELE 21:01
PROVIDERS: ADMIT Internal Medicine; ATTEND Internal Medicine
DX: A41.51 Sepsis due to Escherichia coli [E. coli] (principal); F05 Delirium due to known physiological condition; Z66 Do not resuscitate; E03.9 Hypothyroidism, unspecified; M81.0 Age-related osteoporosis without current pathological fracture; L53.9 Erythematous condition, unspecified; N30.90 Cystitis, unspecified without hematuria; E11.42 Type 2 diabetes mellitus with diabetic polyneuropathy; D69.6 Thrombocytopenia, unspecified; I10 Essential (primary) hypertension; I48.0 Paroxysmal atrial fibrillation; F03.90 Unspecified dementia, unspecified severity, without behavioral disturbance, psychotic disturbance, mood disturbance, and anxiety; M67.8 Other specified disorders of synovium and tendon; M19.029 Primary osteoarthritis, unspecified elbow; Z88.0 Allergy status to penicillin; Z88.2 Allergy status to sulfonamides; Z87.01 Personal history of pneumonia (recurrent); Z87.440 Personal history of urinary (tract) infections; Z79.890 Hormone replacement therapy; Z79.4 Long term (current) use of insulin; Z90.710 Acquired absence of both cervix and uterus
CPT/HCPCS: 36415; 70450; 71045; 76775; 80048; 80053; 81003; 83605; 84443; 84484; 85025; 85610; 85730; 86140; 87040; 87077; 87086; 87186; 87205; 87641; 93005; 99284; A9270-GY; G8978-GP-CJ; G8979-GP-CI; G8987-GO-CJ; G8988-GO-CJ; G8989-GO-CJ; J0696; J1650; J2185; J3490